=== PATIENT | female | born 1960 | race Caucasian/White ===

== ENCOUNTER 2016-12-01 16:21 | Emergency (ER) | payer OTHER ==
[~2016-12-01] VITALS: Ht 166.4 cm; Wt 107.5 kg
[~2016-12-01 16:21] MED LIST: ANTIVERT 25MG #1 PAC PO; ATORVASTATIN CA10 MG PO; AUGMENTIN 875-1 EACH PO; BACTRIM DS TAB1 EACH PO; BUPROPION HCL150 M2 PO; CIPRO 500MG TA500 MG PO; CORICIDIN HBP355 ML PO; CYCLOBENZAPRINE10 M1 PO; DICYCLOMINE HCL20 M1 PO; DIFLUCAN150 MG PO; DILAUDID2 MG PO; DUAVEE PO; FIORICET 50-301 EACH PO; GABAPENTIN100 M2 PO; HYDROCODON-ACE1 EAC2 PO; KEFLEX500 MG PO; KETOROLAC TROME10 M1 PO; LABETALOL HCL200 MG PO; LABETALOL HYDR200 MG PO; LEVSIN-SL0.125 MG SL; LOMOTIL 2.5-0.1 EACH PO; LOSARTAN POTAS100 MG PO; LOSARTAN POTASS50 MG PO; MECLIZINE HCL25 MG PO; NAPROXEN500 MG PO; OXYCODONE HCL5 M1 PO; PERCOCET 325 MG1 TA2 PO; PRAVASTATIN SOD10 M1 PO; ROBAXIN-750750 M1 PO; ROBAXIN-750750 MG PO; SERTRALINE HYD100 MG PO; TRANSDERM-SCOP1 EACH TOP; VIBRAMYCIN 100100 MG PO; VICODIN5-300 PO; VITAMIN D50000 IU PO; ZOFRAN4 M2 PO; ZOFRAN4 MG PO; [UNRECOGNIZED DRUG - OTHER] PO
--- NOTE | 2016-12-01 16:57 | ED GI/GU/ABDOMINAL COMPLAINT ---
See Addendum History of Present Illness General Chief Complaint: General Adult Stated Complaint: PT BLOOD IN URINE,BACK PAiN Source: patient Exam Limitations: no limitations Vital Signs & Intake/Output Vital Signs & Intake/Output Vital Signs Date Time Temp Pulse Resp B/P Pulse O2 O2 Flow FiO2 Ox Delivery Rate 12/01 1946 97.8 76 16 138/84 96 Room Air 12/01 1759 97.2 12/01 1737 71 20 142/95 95 Room Air 12/01 1628 97.2 76 20 133/88 97 Room Air ED Intake and Output 12/02 0000 12/01 1200 Intake Total 0 Output Total Balance 0 Intake, Oral 0 Patient 237 lb Weight Allergies Coded Allergies: NSAIDS (Non-Steroidal Anti-Inflamma (CANT HAVE DUE TO HX OF GASTRIC BYPASS 12/01) aspirin (CANT HAVE DUE TO HX GASTRIC BYPASS 12/01/16) Reconcile Medications Amoxicillin/Potassium Clav (Augmentin 875-125 Tablet) 1 EACH TABLET 1 TAB PO BID colitis Butalb/Acetaminophen/Caffeine (Fioricet 50-300-40 MG Capsule) 50 MG-300 MG-40 MG CAPSULE 1 TAB PO TID PRN MIGRAIN Cyclobenzaprine HCl 10 MG TABLET 1 TAB PO TID PRN MUSCLE SPASMS (Reported) Dicyclomine HCl 20 MG TABLET 1 TAB PO TID CRAMPS (Reported) Diphenoxylate HCl/Atropine (Lomotil 2.5-0.025 MG Tablet) 1 EACH TABLET 1 TAB PO 4 TIMES/DAY PRN diarrhea Gabapentin 100 MG CAPSULE 1 CAP PO TID FIBROMYALGIA (Reported) Hydrocodone/Acetaminophen (Hydrocodon-Acetaminophen 5-325) 5 MG-325 MG TABLET 1-2 TAB PO Q4-6 PRN PRN PAIN Hyoscyamine Sulfate (Levsin-Sl) 0.125 MG TAB.SUBL 1-2 TAB SL Q4P PRN abd cramps Ketorolac Tromethamine 10 MG TABLET 1 TAB PO TID PRN MIGRAINE LABETALOL HCL (Labetalol Hydrochloride) 200 MG TAB 1 TAB PO BID HEART ( Reported) Losartan Potassium 100 MG TAB 1 TAB PO DAILY HEART (Reported) Meclizine HCl 25 MG TABLET 1 TAB PO TIDPRN PRN VERTIGO Methocarbamol (Robaxin-750) 750 MG TABLET 1 TAB PO TID PRN spasm Ondansetron HCl (Zofran) 4 MG TABLET 1 TAB PO Q6-8P PRN NAUSEA Ondansetron HCl (Zofran) 4 MG TABLET 1 TAB PO Q6-8P PRN NAUSEA Pravastatin Sodium 10 MG TAB 1 TAB PO D CHOL (Reported) Scopolamine Hydrobromide (Transderm-Scop) 1.5MG/3DAY PATCH.TD.3 1 PAT TOP Q3D PRN VERTIGO apply to the hairless area behind 1 ear at least 4 hours before effect is required; reapply every 3 days as needed SERTRALINE HCL (Sertraline Hydrochloride) 100 MG TAB 1 TAB PO DAILY MENTAL HEALTH (Reported) Triage Note: TRIAGE: PT TO ER C/C PAIN FROM MID BACK TO RT ABD. ONSET THIS MORNING. CONSTANT SINCE ONSET. ALSO REPORTS NOTED BLOOD IN TOILET AFTER URINATING. STATES "I THINK THEY TOLD ME I HAD A SMALL KIDNEY STONE". -N/V. STATES "I FEEL VERY WEAK AND MY BALANCE HAS BEEN OFF TOO." Triage Nurses Notes Reviewed? yes ? N Is pt currently ? No Onset: Abrupt Duration: constant Timing: recent history Quality/Severity: sharpness, severe, stabbing Location: right flank Radiation: no radiation Activities at Onset: none HPI: Gallbladder Patient is a 56-year-old female who presents to emergency room with a acute onset of gross hematuria noted this morning while urinating patient had concomitant associated symptoms immediately of persistent right-sided flank pain with symptoms feels very similar to previous kidney stones. Patient has had some mild nausea however patient is able tolerate by mouth all day long. Last bowel movement was prior to arrival no blood no melena noted. Denies any fever chills chest pain cough shortness of breath. (HAIR DOWNING) Past History Travel History Traveled to [place] past 21 day No Medical History Any Pertinent Medical History? 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 No (HAIR DOWNING) Review of Systems Review of Systems Constitutional: Reports: no symptoms. EENTM: Reports: no symptoms. Respiratory: Reports: no symptoms. Cardiovascular: Reports: no symptoms. GI: Reports: see HPI, abdominal pain. Genitourinary: Reports: see HPI. Musculoskeletal: Reports: no symptoms. Skin: Reports: no symptoms. Neurological/Psychological: Reports: no symptoms. Hematologic/Endocrine: Reports: no symptoms. Immunologic/Allergic: Reports: no symptoms. All Other Systems: Reviewed and Negative (HAIR DOWNING) Physical Exam Physical Exam General Appearance: no apparent distress, alert, comfortable Eyes: Bilateral: normal appearance. Ears, Nose, Throat, Mouth: hearing grossly normal Neck: normal inspection Respiratory: normal breath sounds, chest non-tender, no respiratory distress Cardiovascular: regular rate/rhythm Gastrointestinal: normal bowel sounds, soft, RIGHT FLANK POINT TENDERNESS NOTED, NO REBOUND TENDERNESS NO PERITONEAL SIGNS NO LEFT LOWER QUADRANT PAIN Back: normal inspection Extremities: normal range of motion Neurologic/Psych: no motor/sensory deficits Skin: intact, normal color, warm/dry Core Measures ACS in differential dx? No Severe Sepsis Present: No Septic Shock Present: No (HAIR DOWNING) Progress Differential Diagnosis: AAA, AMI, biliary colic, bowel obstruction, colon cancer , diverticulitis, endometritis, esophageal varices, gastritis, hepatitis, hernia , hemorrhoids, ischemic bowel, inflamm bowel dis, kidney stone, [place] tear, ovarian cyst, ovarian torsion, pancreatitis, PID/cervicitis, peptic ulcer, PUD/GERD, perforated viscous, SBO, UTI/pyelo Plan of Care: Orders Procedure Date/time Status COMPREHENSIVE METABOLIC PANEL 12/01 1723 Complete CBC WITHOUT DIFFERENTIAL 12/01 1723 Complete URINALYSIS 12/01 1655 Complete Laboratory Tests 12/01/16 1734: Anion Gap 13, Estimated GFR > 60, BUN/Creatinine Ratio 13.8, Glucose 85, Calcium 9.3, Total Bilirubin 0.5, AST 71 H, ALT 73 H, Alkaline Phosphatase 103, Total Protein 7.2, Albumin 4.6, Globulin 2.6, Albumin/Globulin Ratio 1.8 12/01/16 1731: CBC w Diff NO MAN DIFF REQ, RBC 4.34, MCV 80.2 L, MCH 26.5 L, RDW 20.2 H, MPV 7.9, Gran % 61.4, Lymphocytes % 27.7, Monocytes % 6.3, Eosinophils % 2.3, Basophils % 2.3 H, Absolute Granulocytes 4.6, Absolute Lymphocytes 2.1, Absolute Monocytes 0.5, Absolute Eosinophils 0.2, Absolute Basophils 0.2, PUBS MCHC 33.1 12/01/16 1657: Urine Color YEL, Urine Clarity CLEAR, Urine pH 6.0, Ur Specific [place] 1.025, Urine Protein NEG, Urine Ketones TRACE H, Urine Nitrite NEG, Urine Bilirubin NEG, Urine Urobilinogen 0.2, Ur Leukocyte Esterase NEG, Ur Microscopic EXAM NOT REQUIRED, Urine Hemoglobin NEG, Urine Glucose NEG Patient currently is in no apparent distress patient will be evaluated for concerns of kidney stone. Discussed handout for (RACHEL GARY,HAIR) Initial ED EKG: none Hand-Off Endorsed To: RADHA MARCELO MD Endorsed Time: 1834 Pending: CT (HAIR DOWNING) Diagnostic Imaging: Viewed by Me: CT Scan. Discussed w/RAD: CT Scan. Hand-Off Endorsed To: AUTUMN LANE MD Endorsed Time: 1914 Pending: CT Comments: PATIENT: MARC MARSH PRESENT AGE: 56 PATIENT ACCOUNT NO: [id number] : 61 LOCATION: [facility] ORDERING PHYSICIAN: HAIR GARY SERVICE DATE: 12/01/16 EXAM TYPE: CAT - CT ABD & PELVIS W/O IV CONTRAS EXAMINATION: CT ABDOMEN AND PELVIS WITHOUT CONTRAST CLINICAL INFORMATION: Right flank pain. Hematuria COMPARISON: Ultrasound 11/04/[address] scan 05/07/2016 TECHNIQUE: Multidetector volumetric imaging was performed from the lung bases through the pubic symphysis. Sagittal and coronal reformatted images were obtained on the technologist workstation. FINDINGS: The lack of intravenous contrast limits evaluation of the solid visceral organs including the liver, spleen, pancreas, and kidneys. LUNG BASES: Mild cardiomegaly. Lung bases are clear. LIVER, GALLBLADDER, AND BILIARY TREE: Low-attenuation 4 cm lesion lateral segment left lobe of liver is seen hemangioma. No new focal liver lesion seen. Status post cholecystectomy. There is mild prominence of the common bile duct and central intrahepatic bile ducts, not uncommon following cholecystectomy. PANCREAS: Diffuse pancreatic atrophy. No peripancreatic fluid or inflammatory changes. No pancreatic mass. SPLEEN: Mild splenomegaly, 13.6 cm in diameter ADRENAL GLANDS: Normal; no adrenal mass. KIDNEYS AND URETERS: Limited non-contrast evaluation is normal. No hydronephrosis, hydroureter, or calculi seen. No perinephric stranding. GASTROINTESTINAL TRACT: Postoperative changes status post liver is likely a Ross-en-Y gastric bypass. Small bowel is nondilated. No evidence of small bowel obstruction. There is a very tortuous, gas distended sigmoid colon. No colonic wall thickening to suggest colitis or diverticulitis. Surgical sutures suggest prior appendectomy. No evidence of colitis or diverticulitis. ABDOMINAL WALL: Small fat-containing umbilical hernia. LYMPH NODES: No pathologically enlarged lymph nodes in the abdomen or pelvis. VASCULAR: Normal caliber abdominal aorta. BLADDER: Unremarkable. PELVIC VISCERA: Normal CT appearance of the uterus. No adnexal mass. OSSEOUS STRUCTURES: No acute or suspicious osseous abnormalities. IMPRESSION: No CT findings to explain the patient's right flank pain and hematuria. No radiopaque urolithiasis. No right colitis or diverticulitis. Status post cholecystectomy. DICTATED BY: NATASHA TELLEZ MD DATE/TIME DICTATED:12/01/161920 HYDROGEN TREATER:JOSELIN DATE/TIME TRANSCRIBED:12/01/161920 CONFIDENTIAL, DO NOT COPY WITHOUT APPROPRIATE AUTHORIZATION. <Electronically signed in Other Vendor System> SIGNED BY: NATASHA TELLEZ MD 1937 (DAVIAN TAYLOR,RADHA) Departure Departure Disposition: HOME OR SELF CARE Condition: Stable Clinical Impression Primary Impression: Renal colic on right side Referrals: NISA WEISS (PCP/Family) Departure Forms: Customer Survey General Discharge Information (HAIR DOWNING) PA/SALES FLOOR ASSOCIATE Co-Sign Statement Statement: ED Attending supervision documentation- X I saw and evaluated the patient. I have also reviewed all the pertinent lab results and diagnostic results. I agree with the findings and the plan of care as documented in the PA's/SALES FLOOR ASSOCIATE's documentation. [] I have reviewed the ED Record and agree with the PA's/SALES FLOOR ASSOCIATE's documentation. [] Additions or exceptions (if any) to the PAs/SALES FLOOR ASSOCIATE's note and plan are summarized below: [] (ARIANA TAYLOR,AUTUMN)
[2016-12-01 17:42] LABS: ABSOLUTE BASOPHIL COUNT 0.2 /CUMM (0.0-0.2); ABSOLUTE EOSINOPHIL COUNT 0.2 /CUMM (0.0-0.7); ABSOLUTE GRANULOCYTE CT 4.6 /CUMM (1.4-6.5); ABSOLUTE LYMPH COUNT 2.1 /CUMM (1.2-3.4); ABSOLUTE MONOCYTE COUNT 0.5 /CUMM (0.10-0.60); BASOPHIL % 2.3 % (0.0-2.0); EOSINOPHIL % 2.3 % (0-5); GRANULOCYTE % 61.4 % (42.2-75.2); HEMATOCRIT 34.8 % (37-47); MEAN CORPUSCULAR HGB 26.5 PG (27.0-31.0); MEAN CORPUSCULAR HGB CONC 33.1 G/DL (33.0-37.0); MEAN CORPUSCULAR VOLUME 80.2 FL (81.0-99.0); MEAN PLATELET VOLUME 7.9 FL (7.4-10.4); PLATELET COUNT 228 /CUMM (130-400); RBC DISTRIBUTION WIDTH 20.2 % (11.5-14.5); RED BLOOD CELL CT 4.34 /CUMM (4.20-5.40); WHITE BLOOD CELL COUNT 7.6 /CUMM (4.8-10.8)
--- NOTE | 2016-12-01 19:38 | CT SCAN REPORT ---
EXAMINATION: CT ABDOMEN AND PELVIS WITHOUT CONTRAST CLINICAL INFORMATION: Right flank pain. Hematuria COMPARISON: Ultrasound 11/04/[address] scan 05/07/2016 TECHNIQUE: Multidetector volumetric imaging was performed from the lung bases through the pubic symphysis. Sagittal and coronal reformatted images were obtained on the technologist workstation. FINDINGS: The lack of intravenous contrast limits evaluation of the solid visceral organs including the liver, spleen, pancreas, and kidneys. LUNG BASES: Mild cardiomegaly. Lung bases are clear. LIVER, GALLBLADDER, AND BILIARY TREE: Low-attenuation 4 cm lesion lateral segment left lobe of liver is seen hemangioma. No new focal liver lesion seen. Status post cholecystectomy. There is mild prominence of the common bile duct and central intrahepatic bile ducts, not uncommon following cholecystectomy. PANCREAS: Diffuse pancreatic atrophy. No peripancreatic fluid or inflammatory changes. No pancreatic mass. SPLEEN: Mild splenomegaly, 13.6 cm in diameter ADRENAL GLANDS: Normal; no adrenal mass. KIDNEYS AND URETERS: Limited non-contrast evaluation is normal. No hydronephrosis, hydroureter, or calculi seen. No perinephric stranding. GASTROINTESTINAL TRACT: Postoperative changes status post liver is likely a Ross-en-Y gastric bypass. Small bowel is nondilated. No evidence of small bowel obstruction. There is a very tortuous, gas distended sigmoid colon. No colonic wall thickening to suggest colitis or diverticulitis. Surgical sutures suggest prior appendectomy. No evidence of colitis or diverticulitis. ABDOMINAL WALL: Small fat-containing umbilical hernia. LYMPH NODES: No pathologically enlarged lymph nodes in the abdomen or pelvis. VASCULAR: Normal caliber abdominal aorta. BLADDER: Unremarkable. PELVIC VISCERA: Normal CT appearance of the uterus. No adnexal mass. OSSEOUS STRUCTURES: No acute or suspicious osseous abnormalities. IMPRESSION: No CT findings to explain the patient's right flank pain and hematuria. No radiopaque urolithiasis. No right colitis or diverticulitis. Status post cholecystectomy.
[2016-12-01 19:47] VITALS: BP 138/84
== END 2016-12-01 20:17 ==
LOC: ERH 16:21
PROVIDERS: Physician Assistant
DX: N23 Unspecified renal colic (principal)
CPT/HCPCS: 74176; 81003; J3101

== ENCOUNTER 2017-04-08 11:28 | Emergency (ER) | payer OTHER ==
[~2017-04-08] VITALS: Ht 165.1 cm; Wt 96.2 kg
[2017-04-08 11:36] VITALS: BP 104/66
--- NOTE | 2017-04-08 12:48 | ED UPPER/LOWER EXTREMITY COMPL ---
History of Present Illness General Chief Complaint: Lower Extremity Problems Stated Complaint: LFT KNEE REPLACEMENT March/PAIN Source: patient, old records Exam Limitations: no limitations Vital Signs & Intake/Output Vital Signs & Intake/Output Vital Signs Date Time Temp Pulse Resp B/P B/P Pulse O2 O2 Flow FiO2 Mean Ox Delivery Rate 04/08 1248 98 Room Air 04/08 1136 96.0 76 18 104/66 100 Room Air Allergies Coded Allergies: NSAIDS (Non-Steroidal Anti-Inflamma (CANT HAVE DUE TO HX OF GASTRIC BYPASS 12/01) aspirin (CANT HAVE DUE TO HX GASTRIC BYPASS 12/01/16) Reconcile Medications Amoxicillin/Potassium Clav (Augmentin 875-125 Tablet) 1 EACH TABLET 1 TAB PO BID colitis Butalb/Acetaminophen/Caffeine (Fioricet 50-300-40 MG Capsule) 50 MG-300 MG-40 MG CAPSULE 1 TAB PO TID PRN MIGRAIN Cyclobenzaprine HCl 10 MG TABLET 1 TAB PO TID PRN MUSCLE SPASMS (Reported) Dicyclomine HCl 20 MG TABLET 1 TAB PO TID CRAMPS (Reported) Diphenoxylate HCl/Atropine (Lomotil 2.5-0.025 MG Tablet) 1 EACH TABLET 1 TAB PO 4 TIMES/DAY PRN diarrhea Gabapentin 100 MG CAPSULE 1 CAP PO TID FIBROMYALGIA (Reported) Hydrocodone/Acetaminophen ([place] 5-325 Tablet) 5 MG-325 MG TABLET 1 TAB PO Q4- 6 PRN PRN pain Hyoscyamine Sulfate (Levsin-Sl) 0.125 MG TAB.SUBL 1-2 TAB SL Q4P PRN abd cramps Ketorolac Tromethamine 10 MG TABLET 1 TAB PO TID PRN MIGRAINE LABETALOL HCL (Labetalol Hydrochloride) 200 MG TAB 1 TAB PO BID HEART ( Reported) Losartan Potassium 100 MG TAB 1 TAB PO DAILY HEART (Reported) Meclizine HCl 25 MG TABLET 1 TAB PO TIDPRN PRN VERTIGO Methocarbamol (Robaxin-750) 750 MG TABLET 1 TAB PO TID PRN spasm Ondansetron (Zofran Odt) 4 MG TAB.RAPDIS 1 TAB SL TID PRN nausea Ondansetron HCl (Zofran) 4 MG TABLET 1 TAB PO Q6-8P PRN NAUSEA Ondansetron HCl (Zofran) 4 MG TABLET 1 TAB PO Q6-8P PRN NAUSEA Pravastatin Sodium 10 MG TAB 1 TAB PO D CHOL (Reported) Scopolamine Hydrobromide (Transderm-Scop) 1.5MG/3DAY PATCH.TD.3 1 PAT TOP Q3D PRN VERTIGO apply to the hairless area behind 1 ear at least 4 hours before effect is required; reapply every 3 days as needed SERTRALINE HCL (Sertraline Hydrochloride) 100 MG TAB 1 TAB PO DAILY MENTAL HEALTH (Reported) Triage Note: PT TO ED FOR KNEE PAIN, REPORTING SHE HAD A KNEE REPLACEMENT AT [facility], [facility] ON MONDAY AND IS NOW HAVING PAIN. PT STATING SHE CALLD HER DOCTOR "BUT NO ONE PICKED UP AND [facility] IS TOO [facility]" Triage Nurses Notes Reviewed? yes Onset: Gradual Duration: week(s): (1), constant Timing: recent history Severity: moderate Severity Numbers: 5 Pain/Injury Location: Left: Knee. No Modifying Factors: none Associated Symptoms: none HPI: 56-year-old female presents to ER for evaluation complaining of one-week history of progressive worsening left anterior knee pain. She is status post left knee surgery at [facility] in march. She saw her orthopedist last week prescribed her Percocet however states the pain persist and she ran out of her medication yesterday. She denies any redness or warmth to her leg no swelling to her leg no discharge from the wound no fever no chills. There are no modifying factors or associated symptoms otherwise. (HAIR LEE) Past History Travel History Traveled to [place] past 21 day No Medical History Any Pertinent Medical History? 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 No (HAIR LEE) Review of Systems Review of Systems Constitutional: Reports: see HPI. All Other Systems: Reviewed and Negative Comments Review of systems: See HPI, All other systems negative. Constitutional, no chills no fever, no malaise HEENT: No visual changes no sore throat no congestion, Cardiovascular: No chest pain , no palpitation Skin: no rashes, no change in skin Respiratory: No dyspnea no cough no sputum GI: No nausea no vomiting, no diarrhea, Muscle skeletal: No joint pain, no joint swelling, no back pain, no neck pain, Neurologic: No numbness no headache Psych: No stress Heme/endocrine: No bruising Immunology: No lymphadenopathy (HAIR LEE) Physical Exam Physical Exam General Appearance: well developed/nourished, no apparent distress, alert Comments: Well-developed well-nourished patient in no apparent distress. HEENT: Atraumatic, extraocular motion intact Neck: Supple, FROM Back: FROM Cardiovascular: Regular rate and rhythms no murmurs rubs Respiratory: No respiratory distress. Patient speaking in full complete sentences. Breath sounds clear to auscultation bilaterally: NO W/R/R Upper Extremities: full range of motio Hip/Pelvis: Atraumatic/Stable. FROM. No pain with pelvic compression Knee: Surgical incision is clean dry and intact there is no overlying erythema or induration or fluctuance stable. FROM. No joint swelling, no effusion. No laxity. Negative nicanor/anterior drawer test. No pain with ROM Leg: Atraumatic. Nontender. No calf swelling or tenderness No edema, 5 out of 5 strength in the lower extremity, normal dorsiflexion of great toe bilaterally, gross sensation is intact, Ankle/Foot: Atraumatic/stable. Skin intact. FROM. No swelling, no effusion. No laxity on exam Pulses: Normal/equal DP/PT pulses bilaterally. Brisk cap refill Neuro: awake, alert, and oriented to person, place and time. There were no obvious focal neurologic abnormalities. Skin: Warm & dry;No appreciable rash on exposed skin Psych: Mood affect normal, normal memory normal judgment. (HAIR LEE) Progress Differential Diagnosis: cellulitis, compartment syndrome, contusion, dislocation , DVT, fracture, sprain, tendon injury Plan of Care: I discussed with the patient at length all of their results. I had an extensive conversation regarding need for close follow up with their primary care physician this week as well as return precautions. I answered all of their questions, they feel comfortable with the plan and follow-up care. I discussed with the patient/family the medications that they will receive. I gave them signs and symptoms that could indicate an adverse reaction. I have advised them to limit their activities until they can see how they respond to the medication. (HAIR LEE) Departure Departure Time of Disposition: 1254 Disposition: HOME OR SELF CARE Condition: Stable Clinical Impression Primary Impression: Knee pain Referrals: NISA WEISS (PCP/Family) Additional Instructions: follow up with your orthopedist on monday. rest, keep leg elevated, interchange ice and heat. vicodin as directed. this is a narcotic and highly addictive no driving or drinking alcohol while taking. zofran for nausea. [facility]arture Forms: Customer Survey General Discharge Information Prescriptions: Current Visit Scripts Hydrocodone/Acetaminophen ([place] 5-325 Tablet) 1 TAB PO Q4-6 PRN PRN pain #10 TAB Ondansetron (Zofran Odt) 1 TAB SL TID PRN nausea #10 TAB (HAIR LEE) PA/CHANNEL SUPERVISOR Co-Sign Statement Statement: ED Attending supervision documentation- I saw and evaluated the patient. I have also reviewed all the pertinent lab results and diagnostic results. I agree with the findings and the plan of care as documented in the PA's/CHANNEL SUPERVISOR's documentation. x I have reviewed the ED Record and agree with the PA's/CHANNEL SUPERVISOR's documentation. [] Additions or exceptions (if any) to the PAs/CHANNEL SUPERVISOR's note and plan are summarized below: [] (ARIANA TAYLOR,AUTUMN)
[2017-04-08] MEDS ORDERED: NORCO 5-325 TA1 EACH PO (12:57)
[2017-04-08] MEDS ORDERED: ZOFRAN ODT4 M1 SL (12:57)
== END 2017-04-08 13:20 ==
LOC: ERH 11:28
DX: M25.562 Pain in left knee (principal)

== ENCOUNTER 2018-03-29 09:22 | Inpatient (IN) | payer OTHER ==
[~2018-03-29] VITALS: Ht 165.1 cm; Wt 97.5 kg
[~2018-03-29 09:22] MED LIST changes: +ASPIRIN EC325 M2 PO; +BENTYL10 M1 PO; +DIFLUCAN150 M1 PO; +FERROUS SULFAT325 M2 PO; -GABAPENTIN100 M2 PO; +HYDROCHLOROTH12.5 M2 PO; +K-TAB ER10 MEQ PO; +KEFLEX500 M1 PO; +LABETALOL HCL200 M1 PO; -LABETALOL HYDR200 MG PO; +LIALDA1.2 G1 PO; +LOSARTAN POTAS100 M1 PO; -LOSARTAN POTAS100 MG PO; +MELOXICAM7.5 M1 PO; +MOBIC15 M1 PO; +NEURONTIN400 M1 PO; +NORCO 5-325 TA1 EACH PO; +PERCOCET 5-3251 EACH PO; -PRAVASTATIN SOD10 M1 PO; +PRAVASTATIN SOD10 M2 PO; +PROTONIX40 M3 PO; -SERTRALINE HYD100 MG PO; +TRAMADOL HCL50 M1 PO; +ZOFRAN ODT4 M1 SL; +ZOLOFT100 M1 PO; +[UNRECOGNIZED DRUG - OTHER] TOP
--- NOTE | 2018-03-29 11:02 | ED GENERAL ADULT ---
History of Present Illness General Chief Complaint: General Adult Stated Complaint: SENT BY MD FOR ABNORMAL LABS Source: patient, old records Exam Limitations: no limitations Vital Signs & Intake/Output Vital Signs & Intake/Output Vital Signs Date Time Temp Pulse Resp B/P B/P Pulse O2 O2 Flow FiO2 Mean Ox Delivery Rate 03/29 1504 97.5 73 18 128/77 99 03/29 1249 Room Air 03/29 0937 97.5 88 18 105/74 96 Room Air Allergies Coded Allergies: NSAIDS (Non-Steroidal Anti-Inflamma (CANT HAVE DUE TO HX OF GASTRIC BYPASS 07/14) Reconcile Medications Aspirin (Ecotrin*) 325 MG TABLET.DR 1 TAB PO BID PROPHO (Reported) Dicyclomine HCl 20 MG TABLET 1 TAB PO TID GI (Reported) Dicyclomine Hydrochloride (Bentyl) 10 MG CAPSULE 1 CAP PO TID PRN PAIN Ferrous Sulfate 325 MG (65 MG IRON) TABLET.DR 1 TAB PO DAILY SUPPLEMENT ( Reported) Fluocinolone Acetonide ([place] Shampoo) 0.01 % SHAMPOO 1 JUAN ANTONIO TOP AD SCALP ( Reported) Gabapentin (Neurontin) 300 MG CAPSULE 1 CAP PO TID PAIN (Reported) Hydrochlorothiazide 12.5 MG TABLET 1 TAB PO DAILY HTN (Reported) Labetalol HCl 200 MG TABLET 1 TAB PO BID HEART (Reported) Losartan Potassium 100 MG TABLET 1 TAB PO DAILY HEART (Reported) Mesalamine (Lialda) 1.2 GRAM TABLET.DR 1 TAB PO BID GI (Reported) Oxycodone HCl 5 MG TABLET 1 TAB PO BIDP PRN PAIN (Reported) Pantoprazole Sodium (Protonix) 40 MG TABLET.DR 1 TAB PO BID GI (Reported) Potassium Chloride (K-Tab ER) 10 MEQ TABLET.ER 1 TAB PO DAILY HYPOK Pravastatin Sodium 10 MG TABLET 1 TAB PO DAILY CHOLESTEROL (Reported) Sertraline HCl (Zoloft) 100 MG TABLET 1 TAB PO DAILY MENTAL HEALTH (Reported) Triage Note: PT STATES THAT SHE HAS NOT BEEN FEELING WELL LATELY, BLACKED OUT ON MONDAY AND MONDAY STARTED TO FEEL WELL, WAS SEEN AT [facility] YESTERDAY AND HAD LABS, STATES THAT THEY CALLED HER THIS AM AND TOLF HER TO COME TO ER DUE TO ABNORMAL LABS. BUN 36/ CREATNINE 2.88/WBC 19.0/ LYMPHOCYTES [id number] PT DENIES URINARY SYMPTOMS/ABD PAIN/CP/SOB STATES THAT SHE FEELS A LITTLE BETTER TODAY Triage Nurses Notes Reviewed? yes HPI: Patient states that she has been feeling weak and fatigued over the past few days. Patient states that her mom came home 2 days ago and she was "out of it. ". Patient went to her primary care physician yesterday and she had blood work drawn. She received a phone call today saying that she was in renal failure and had to go to the emergency room. Patient denies any chest pain. There is no shortness of breath. There is no weight gain. Patient denies any headache. Past History Travel History Traveled to [place] past 21 day No Medical History Any Pertinent Medical History? 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 No Review of Systems Review of Systems Constitutional: Reports: see HPI, weakness. EENTM: Reports: no symptoms. Respiratory: Reports: no symptoms. Cardiovascular: Reports: no symptoms. GI: Reports: no symptoms. Genitourinary: Reports: no symptoms. Musculoskeletal: Reports: no symptoms. Skin: Reports: no symptoms. Neurological/Psychological: Reports: no symptoms. Hematologic/Endocrine: Reports: no symptoms. Immunologic/Allergic: Reports: no symptoms. All Other Systems: Reviewed and Negative Physical Exam Physical Exam General Appearance: well developed/nourished, alert, awake, mild distress Head: atraumatic, normal appearance Eyes: Bilateral: PERRL, EOMI. Ears, Nose, Throat: normal pharynx, normal ENT inspection, hearing grossly normal Neck: normal inspection, supple, full range of motion Respiratory: normal breath sounds, chest non-tender, no respiratory distress, lungs clear Cardiovascular: regular rate/rhythm, normal peripheral pulses Gastrointestinal: normal bowel sounds, soft, non-tender, no organomegaly Back: normal inspection, normal range of motion Extremities: normal inspection, normal capillary refill, normal range of motion, no edema Neurologic/Psych: no motor/sensory deficits, awake, alert, oriented x 3, normal mood/affect Skin: intact, normal color, warm/dry Core Measures ACS in differential dx? No CVA/TIA Diagnosis: No Sepsis Present: No Sepsis Focused Exam Completed? No Progress Differential Diagnoses I considered the following diagnoses in my evaluation of the patient: [Acute renal failure] Plan of Care: Orders Procedure Date/time Status Heart Healthy Diet 03/29 D Active Patient Data 03/29 1352 Active ED Holding Orders 03/29 1345 Active Admit to inpatient 03/29 1345 Active Vital Signs 03/29 1345 Active EKG 03/29 1345 Active Code Status 03/29 1345 Active Intake & Output 03/29 1154 Active URINALYSIS 03/29 1030 Complete COMPREHENSIVE METABOLIC PANEL 03/29 1030 Complete CBC WITHOUT DIFFERENTIAL 03/29 1030 Complete Laboratory Tests 03/29/18 1137: Anion Gap 15, Estimated GFR 14 L, BUN/Creatinine Ratio 12.1, Glucose 105 H, Calcium 9.4, Total Bilirubin 0.6, AST 26, ALT 45, Alkaline Phosphatase 122, Total Protein 6.8, Albumin 4.2, Globulin 2.6, Albumin/Globulin Ratio 1.6, CBC w Diff NO MAN DIFF REQ, RBC 4.40, MCV 86.9, MCH 29.3, MCHC 33.7, RDW 14.5, MPV 8.1 , Gran % 75.6 H, Lymphocytes % 16.1 L, Monocytes % 5.9, Eosinophils % 2.1, Basophils % 0.3, Absolute Granulocytes 11.6 H, Absolute Lymphocytes 2.5, Absolute Monocytes 0.9 H, Absolute Eosinophils 0.3, Absolute Basophils 0.1, Urinalysis LIGHT H, Urine Color YEL, Urine Clarity HAZY H, Urine pH 5.5, Ur Specific [place] >= 1.030, Urine Protein 30 H, Urine Ketones TRACE H, Urine Nitrite NEG, Urine Bilirubin NEG@ICTO, Urine Urobilinogen 0.2, Ur Leukocyte Esterase TRACE H, Ur Microscopic SEDIMENT EXAMINED, Urine WBC 1-3 H, Ur Epithelial Cells MANY H, Urine Bacteria FEW H, Hyaline Casts 1-3 H, Urine Hemoglobin NEG, Urine Glucose NEG Diagnostic Imaging: Viewed by Me: Ultrasound. Discussed w/RAD: Ultrasound. Initial ED EKG: NSR, nonspecific ST T wave chg Comments: Case was discussed with Dr. Romano. He recommends admission for further workup. Departure Departure Disposition: STILL A PATIENT Condition: Stable Clinical Impression Primary Impression: ARF (acute renal failure) Referrals: Zakiya Ayers APRN (PCP/Family) Departure Forms: Customer Survey General Discharge Information Admission Note Spoke With: Merle TAYLOR,Agueda Documentation of Exam: Documentation of any treatments & extenuating circumstances including Concerns Regarding Discharge (functional status, medication knowledge or non-compliance, living conditions, etc.) that warrant an admission rather than observation: [IV fluids, follow-up ultrasound, hold the losartan, renal consultation] Critical Care Note Critical Care Note Critical Care Time: non-applicable
[2018-03-29 11:57] LABS: ABSOLUTE BASOPHIL COUNT 0.1 /CUMM (0.0-0.2); ABSOLUTE EOSINOPHIL COUNT 0.3 /CUMM (0.0-0.7); ABSOLUTE GRANULOCYTE CT 11.6 /CUMM (1.4-6.5); ABSOLUTE LYMPH COUNT 2.5 /CUMM (1.2-3.4); ABSOLUTE MONOCYTE COUNT 0.9 /CUMM (0.10-0.60); BASOPHIL % 0.3 % (0.0-2.0); EOSINOPHIL % 2.1 % (0-5); GRANULOCYTE % 75.6 % (42.2-75.2); HEMATOCRIT 38.2 % (37-47); MEAN CORPUSCULAR HGB 29.3 PG (27.0-31.0); MEAN CORPUSCULAR HGB CONC 33.7 G/DL (33.0-37.0); MEAN CORPUSCULAR VOLUME 86.9 FL (81.0-99.0); MEAN PLATELET VOLUME 8.1 FL (7.4-10.4); PLATELET COUNT 357 /CUMM (130-400); RBC DISTRIBUTION WIDTH 14.5 % (11.5-14.5); WHITE BLOOD CELL COUNT 15.3 /CUMM (4.8-10.8)
--- NOTE | 2018-03-29 14:07 | History & Physical ---
Rosalba Poole 03/29/18 1406: General Information and HPI History of Present Illness: Ms. Levy is a 57-year-old female with a PMH of hypertension, hyperlipidemia, colitis, fibromyalgia, depression SIB [facility] for abnormal labs. Patient reports yesterday she was not feeling well and that she was having watery brown stools and lightheadedness for the last 4 days. As per her family members she was "comatose" and had slurred speech and she then went to the doctor to get checked. Her labs were drawn and she received a call from her provider that noted her creatinine was 2.88, white count 19,000 and lymphocytes 16,000 and was told to go to the ED. She notes in January her gabapentin was recently increased from 300 to 400 mg TID. Today she did not take her gabapentin and reports her symptoms spontaneously resolved. She has had intermittent right-sided flank pain without radiation. One month ago she was treated by Dr. Bill for colitis and was given antibiotics. She reports at that time she did not have any diarrhea. She also reports a few months ago she had a syncopal episode and was treated in [place], she was told that she was on too many antihypertensives and her labetalol was discontinued. At baseline she walks with a walker. She denies fever, chills, LOC, nausea, vomiting, SOB, CP or urinary symptoms. 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 Exam & Diagnostic Data Last 24 Hrs of Vital Signs/I&O Vital Signs Date Time Temp Pulse Resp B/P B/P Pulse O2 O2 Flow FiO2 Mean Ox Delivery Rate 03/29 1710 98.2 89 18 130/68 97 Room Air 03/29 1616 97.6 84 16 136/74 98 Room Air 03/29 1504 97.5 73 18 128/77 99 03/29 1249 Room Air 03/29 0937 97.5 88 18 105/74 96 Room Air Intake & Output 03/29 1600 03/29 0800 03/29 0000 Intake Total 1000 Output Total Balance 1000 Intake, IV 1000 Patient 215 lb Weight Physical Exam General Appearance Alert, Oriented X3, Cooperative, No Acute Distress, Obese HEENT Atraumatic, PERRLA, EOMI, Mucous Membr. moist/pink Neck Supple, No JVD, No thryomegaly Cardiovascular Regular Rate, Normal S1, Normal S2, 2/6 systolic murmur Extremities trace edema Last 24 Hrs of Labs/Tristen: Laboratory Tests 03/29/18 1137: Urinalysis LIGHT H, Urine Color YEL, Urine Clarity HAZY H, Urine pH 5.5, Ur Specific [place] >= 1.030, Urine Protein 30 H, Urine Ketones TRACE H, Urine Nitrite NEG, Urine Bilirubin NEG@ICTO, Urine Urobilinogen 0.2, Ur Leukocyte Esterase TRACE H, Ur Microscopic SEDIMENT EXAMINED, Urine WBC 1-3 H, Ur Epithelial Cells MANY H, Urine Bacteria FEW H, Hyaline Casts 1-3 H, Urine Hemoglobin NEG, Urine Glucose NEG 03/29/18 1137: Anion Gap 15, Estimated GFR 14 L, BUN/Creatinine Ratio 12.1, Glucose 105 H, Calcium 9.4, Phosphorus 4.3, Magnesium 2.3, Total Bilirubin 0.6, AST 26, ALT 45, Alkaline Phosphatase 122, Creatine Kinase 45, Total Protein 6.8, Albumin 4.2, Globulin 2.6, Albumin/Globulin Ratio 1.6, CBC w Diff NO MAN DIFF REQ, RBC 4.40, MCV 86.9, MCH 29.3, MCHC 33.7, RDW 14.5, MPV 8.1, Gran % 75.6 H, Lymphocytes % 16.1 L, Monocytes % 5.9, Eosinophils % 2.1, Basophils % 0.3, Absolute Granulocytes 11.6 H, Absolute Lymphocytes 2.5, Absolute Monocytes 0.9 H, Absolute Eosinophils 0.3, Absolute Basophils 0.1, Ur Random Creatinine Pending, Ur Random Sodium 7 L, Ur Random Potassium 17.3, Fraction Sodium Excret Pending Microbiology 03/29 1748 STOOL: Clostridium difficile Toxin A & B - CAN Cancelled: Cancelled via OE: Error 03/29 1719 STOOL: Cryptosporidium Antigen - COLB 03/29 1719 STOOL: Giardia Antigen (TRISTEN) - COLB 03/29 1719 STOOL: Stool Culture - COLB Diagnostic Data Other Results 03/29/18-1230 EXAM TYPE: US - US-RENAL/KIDNEY IMPRESSION: Normal sonographic appearance of the kidneys. Assessment/Plan Assessment: Ms. Levy is a 57-year-old female with a PMH of hypertension, hyperlipidemia, colitis, fibromyalgia, depression SIB [facility] for abnormal labs. Problem list: #KAY (Cr 3.4)- secondary to dehydration in the setting of antihypertensives versus due to gabapentin use #Leukocytosis - may be reactive Plan: Admit to general med for further evaluation and management Renal ultrasound Urine lytes NS IVF @ 150 cc/hr Watch off antibiotics Vitals every shift Continue home meds: Dicyclomine, mesalamine, oxycodone, Ativan, sertraline We will hold losartan and gabapentin Avoid nephrotoxic agents Stool for ova and parasites C. difficile toxin GI consult for diarrhea Nephro consult for a CAD Diet: Heart healthy DVT ppx: Heparin Code: Full As Ranked By This Provider Problem List: 1. ARF (acute renal failure) Core Measures/Misc (07/23) Sepsis (View protocol) If YES complete Sepsis Event Note If YES complete Sepsis Event Note Noah TAYLOR,[facility] 03/29/18 1520: Core Measures/Misc (07/23) Sepsis (View protocol) If YES complete Sepsis Event Note If YES complete Sepsis Event Note Attending MD Review Statement Attending Statement Attending MD Statement: examined this patient, discuss w/resident/PA/ENVIRONMENTAL PERMITTING SPECIALIST, agreed w/resident/PA/ENVIRONMENTAL PERMITTING SPECIALIST, reviewed EMR data (avail), discussed with nursing, discussed with case mgmt, reviewed images, amended to note Attending Assessment/Plan: 57-year-old female with past medical history significant for hypertension, hyperlipidemia, ulcerative colitis, fiber myalgia, depression who presented to the emergency room after she was told that she has abnormal blood work. Patient claims that since last 1 week she has been having watery diarrhea. Every time she urinates, she has a loose bowel movement. She has not eaten anything since last 4 days because she is afraid to eat due to diarrhea. She denies any abdominal pain. She also mentions that recently her gabapentin dose has been increased and she thinks that it's making her dizzy and foggy. She does admit to eating in a restaurant last week. She denies any abdominal pain or nausea or vomiting. She denies any bright red blood per rectum. She had a coloscopy done in January 2018 which showed that her ulcerative colitis is stable. She does take Lialda for ulcerative colitis. No hx of NSAID use. Vital Signs Date Time Temp Pulse Resp B/P B/P Pulse O2 O2 Flow FiO2 Mean Ox Delivery Rate 03/29 1504 97.5 73 18 128/77 99 03/29 1249 Room Air 03/29 0937 97.5 88 18 105/74 96 Room Air on exam; aox3, nad. heent; dry MM. cv; s1,s2, rrr resp; clear abd; soft, nt, bs+ ext; no edema Laboratory Tests 03/29 1137 Chemistry Sodium (137 - 145 mmol/L) 142 Potassium (3.5 - 5.1 mmol/L) 3.2 L Chloride (98 - 107 mmol/L) 104 Carbon Dioxide (22 - 30 mmol/L) 23 Anion Gap (5 - 16) 15 BUN (7 - 17 mg/dL) 41 H Creatinine (0.5 - 1.0 mg/dL) 3.4 H Estimated GFR (>60 ml/min) 14 L BUN/Creatinine Ratio (7 - 25 %) 12.1 Glucose (65 - 99 mg/dL) 105 H Calcium (8.4 - 10.2 mg/dL) 9.4 Total Bilirubin (0.2 - 1.3 mg/dL) 0.6 AST (14 - 36 U/L) 26 ALT (9 - 52 U/L) 45 Alkaline Phosphatase (<127 U/L) 122 Total Protein (6.3 - 8.2 g/dL) 6.8 Albumin (3.5 - 5.0 g/dL) 4.2 Globulin (1.9 - 4.2 gm/dL) 2.6 Albumin/Globulin Ratio (1.1 - 2.2 %) 1.6 Hematology CBC w Diff NO MAN DIFF REQ WBC (4.8 - 10.8 /CUMM) 15.3 H RBC (4.20 - 5.40 /CUMM) 4.40 Hgb (12.0 - 16.0 G/DL) 12.9 Hct (37 - 47 %) 38.2 MCV (81.0 - 99.0 FL) 86.9 MCH (27.0 - 31.0 PG) 29.3 MCHC (33.0 - 37.0 G/DL) 33.7 RDW (11.5 - 14.5 %) 14.5 Plt Count (130 - 400 /CUMM) 357 MPV (7.4 - 10.4 FL) 8.1 Gran % (42.2 - 75.2 %) 75.6 H Lymphocytes % (20.5 - 51.1 %) 16.1 L Monocytes % (1.7 - 9.3 %) 5.9 Eosinophils % (0 - 5 %) 2.1 Basophils % (0.0 - 2.0 %) 0.3 Absolute Granulocytes (1.4 - 6.5 /CUMM) 11.6 H Absolute Lymphocytes (1.2 - 3.4 /CUMM) 2.5 Absolute Monocytes (0.10 - 0.60 /CUMM) 0.9 H Absolute Eosinophils (0.0 - 0.7 /CUMM) 0.3 Absolute Basophils (0.0 - 0.2 /CUMM) 0.1 Urines Urinalysis LIGHT H Urine Color (YEL,AMB,STR) YEL Urine Clarity (CLEAR) HAZY H Urine pH (5.0 - 8.0) 5.5 Ur Specific [place] (1.001 - 1.035) >= 1.030 Urine Protein (NEG,<30 MG/DL) 30 H Urine Ketones (NEG) TRACE H Urine Nitrite (NEG) NEG Urine Bilirubin (NEG) NEG@ICTO Urine Urobilinogen (0.1 - 1.0 EU/dl) 0.2 Ur Leukocyte Esterase (NEG) TRACE H Ur Microscopic SEDIMENT EXAMINED Urine WBC (0 - 2 /HPF) 1-3 H Ur Epithelial Cells (NONE,FEW) MANY H Urine Bacteria (NEG/NONE) FEW H Hyaline Casts (0/LPF) 1-3 H Urine Hemoglobin (NEG) NEG Urine Glucose (N MG/DL) NEG Renal ultrasound does not show any hydronephrosis or obstruction. Her EKG shows sinus rhythm with no acute ST-T wave changes. A/P: 57-year-old female with past medical history significant for hypertension, hyperlipidemia, ulcerative colitis, fiber myalgia, depression admitted with acute renal failure likely secondary to prerenal etiology from dehydration. Renal ultrasound negative for any hydronephrosis or obstruction. Patient admitted to medicine. She is getting IV fluids. Please obtain urine studies to calculate FENA. Continue IV fluids and monitor creatinine. Please consult GI for diarrhea associated with ulcerative colitis. We'll check stool studies to rule out any C. difficile, stool culture. Will hold all nephrotoxin meds including ARB/Diuretics. Hold Gabapentin. Continue IVFs. DVT px; Hep sq. Full code. Dale TAYLOR,[place] 03/29/18 1703: General Information and HPI MD Statement: I have seen and personally examined MARC LEVY and documented this H&P. The patient is a 57 year old F who presented with a patient stated chief complaint of [KAY]. Source of Information: patient, family, old records Exam Limitations: no limitations Allergies/Medications Home Med list Dicyclomine HCl 20 MG TABLET 1 TAB PO TID GI (Reported) Ferrous Sulfate 325 MG (65 MG IRON) TABLET.DR 1 TAB PO DAILY SUPPLEMENT ( Reported) Gabapentin (Neurontin) 400 MG CAPSULE 1 CAP PO TID Peripheral neuropathy ( Reported) Losartan Potassium 100 MG TABLET 1 TAB PO DAILY HEART (Reported) Mesalamine (Lialda) 1.2 GRAM TABLET.DR 1 TAB PO BID GI (Reported) Oxycodone HCl 5 MG TABLET 1 TAB PO BIDP PRN PAIN (Reported) Pantoprazole Sodium (Protonix) 40 MG TABLET.DR 1 TAB PO BID GI (Reported) Pravastatin Sodium 10 MG TABLET 1 TAB PO DAILY CHOLESTEROL (Reported) Sertraline HCl (Zoloft) 100 MG TABLET 1 TAB PO DAILY MENTAL HEALTH (Reported) Core Measures/Misc (07/23) Acute Coronary Syndrome ACS Diagnosis: No Congestive Heart Failure Congestive Heart Failure Diagnosis No Cerebrovascular Accident CVA/TIA Diagnosis: No VTE (View Protocol) VTE Risk Factors Age>40 No Mechanical VTE Prophylaxis d/t N/A MechProphylax Ordered No VTE Pharm Prophylaxis d/t NA PharmProphylax ordered Comment: KAY so on heparin Sepsis (View protocol) Sepsis Present: No If YES complete Sepsis Event Note If YES complete Sepsis Event Note Resident Review Statement Resident Statement: examined this patient, discussed with tax services intern, agreed with tax services intern, discussed with family Other Findings: Patient is a 57-year-old female past medical history of hypertension, hyperlipidemia, ulcerative colitis, fibromyalgia, depression, history of gastric bypass surgery,Mild multilevel lumbar spondylosis sent by her PCP for further evaluation of high creatinine. According to the patient she was not feeling well since last 5 days. She had episodes of diarrhea around 3-4 times in a day. Stool was watery nature but denies for any blood in the stools. She did eat outside, but denies for any seafood, sick contacts, fever, nausea, vomiting. Since last 2 days she was very weak and dizzy and yesterday she was kind of unresponsive. Her family including her sister came into the home and they advised her to go to the [facility]. She went there and her blood workup was checked. She was called by her primary care in the morning that her creatinine number is 2.88 and she needed to go to the emergency department. She denies for any headache, nausea, vomiting, fever, shortness of breath, chest pain, abdominal pain, urinary symptoms, use of NSAIDs. Of note she also said that recently her gabapentin dose has been increased from 300 mg to 400 mg 3 times a day a month ago but that may be responsible for her height kidney number. She was also saying that she had an episode of diarrhea about a month ago and was prescribed antibiotic by Dr. Bill and later Imodium. ED course - Vital signs -temperature 97.5, pulse 88, respiratory rate 18, blood pressure 105 /74, SPO2 96% on room air. On physical exam -oral mucosa dry otherwise normal. Blood workup showed -WBC 15.3, hemoglobin 12.9, hematocrit 38.2, platelet count 357, granulocyte 75.6, lymphocytes 16.1, sodium 142, potassium 3.2, chloride 104 , carbon dioxide 23, anion gap 15, BUN 41, creatinine 3.4, GFR 14, glucose 105, calcium 9.4, total bilirubin 0.6, AST 26, ALT 45, alkaline phosphatase 108, total protein 6.8, albumin 4.2, globulin 2.6, UA -type color, hazy, protein 30, trace ketones, WBC 1-3, bacteria few. Ultrasound of the kidney -normal sonographic appearance of the kidney Assessment and plan - Acute kidney injury secondary to dehydration, diarrhea probably acute tubular necrosis - * We will start patient on IV fluid normal saline 150 cc/h * Strict intake output charting * Avoid nephrotoxic medication * He will follow nephrology recommendation * We will follow creatinine Leukocytosis -reactionary; infection is not ruled out - * Patient does not have any fever, tachycardia, she recently had diarrhea which has been improved. * We will check a stool for ova and parasite, will do a stool culture. * We stool for C diff, was negative in morning. * We will follow GI Chronic medical condition -hypertension, hyperlipidemia, colitis, fibromyalgia, depression - * We will hold losartan and continue all other medication DVT prophylaxis -heparin/ALPS CODE STATUS-full code Diet -heart healthy diet
--- NOTE | 2018-03-29 14:21 | ULTRASOUND REPORT ---
EXAMINATION: US RETROPERITONEAL COMPLETE (RENAL) CLINICAL INFORMATION: Acute renal failure. COMPARISON: Selected images of the abdomen and pelvic CT scan of 05/20/2017. TECHNIQUE: Real-time imaging of the kidneys and bladder. FINDINGS: RIGHT KIDNEY: 10.9 x 4.7 x 4.5 cm (SAG x AP x TRV). The kidney is normal in size, contour, and echogenicity. Renal cortical thickness is normal. No calculi or focal parenchymal lesions. No hydronephrosis. LEFT KIDNEY: 10.2 x 5.1 x 4.5 cm (SAG x AP x TRV). The kidney is normal in size, contour, and echogenicity. Renal cortical thickness is normal. No calculi or focal parenchymal lesions. No hydronephrosis. BLADDER: Significantly underdistended and therefore not optimally evaluated. Bilateral ureteral jets are not demonstrated. Prevoid bladder volume is 29 mL. Postvoid bladder volume is 12 mL. IMPRESSION: Normal sonographic appearance of the kidneys.
--- NOTE | 2018-03-29 16:40 | Cons- Nephrology ---
General Information and HPI Consulting Request Date of Consult: 03/29/18 Requested By: Noah TAYLOR,Myrtle Reason for Consult: KAY Source of Information: patient, old records Exam Limitations: no limitations History of Present Illness: I have been asked to see this 57-year-old woman because of a markedly elevated serum creatinine level. She has a background that includes colitis (colonoscopy Dr. Bill 02/02/18) and has recently been having watery stools several times a day. Her most recent baseline serum creatinine was 0.7 in July 2017. She comes to the emergency department now because of the finding of a markedly elevated serum creatinine which on arrival at the ED was 3.4, prompting this consultation request. As already noted, she has had diarrhea but no vomiting and was not exposed to any NSAIDs or parenteral contrast. She was however taking hydrochlorothiazide and losartan (100 mg daily). Her blood pressure here has been within normal limits with systolics in the 120s but she states that she has felt some lightheadedness from time to time over the past 1-2 days. Past medical history is positive for hypertension, hyperlipidemia, colitis, fibromyalgia, depression, left knee replacement, appendectomy, cholecystectomy, gastric bypass, carpal tunnel surgery. Medications: See below Allergies: NSAIDs Family history: Negative for any known kidney disease in parents or other family members. Social history: Currently lives with her mother although she is looking for her own place. . Denies cigarette smoking, alcohol abuse or drug abuse. Allergies/Medications Allergies: Coded Allergies: NSAIDS (Non-Steroidal Anti-Inflamma (CANT HAVE DUE TO HX OF GASTRIC BYPASS 07/14) Home Med List: Aspirin (Ecotrin*) 325 MG TABLET.DR 1 TAB PO BID PROPHO (Reported) Dicyclomine HCl 20 MG TABLET 1 TAB PO TID GI (Reported) Dicyclomine Hydrochloride (Bentyl) 10 MG CAPSULE 1 CAP PO TID PRN PAIN Ferrous Sulfate 325 MG (65 MG IRON) TABLET.DR 1 TAB PO DAILY SUPPLEMENT ( Reported) Fluocinolone Acetonide ([place] Shampoo) 0.01 % SHAMPOO 1 JUAN ANTONIO TOP AD SCALP ( Reported) Gabapentin (Neurontin) 300 MG CAPSULE 1 CAP PO TID PAIN (Reported) Hydrochlorothiazide 12.5 MG TABLET 1 TAB PO DAILY HTN (Reported) Labetalol HCl 200 MG TABLET 1 TAB PO BID HEART (Reported) Losartan Potassium 100 MG TABLET 1 TAB PO DAILY HEART (Reported) Mesalamine (Lialda) 1.2 GRAM TABLET.DR 1 TAB PO BID GI (Reported) Oxycodone HCl 5 MG TABLET 1 TAB PO BIDP PRN PAIN (Reported) Pantoprazole Sodium (Protonix) 40 MG TABLET.DR 1 TAB PO BID GI (Reported) Potassium Chloride (K-Tab ER) 10 MEQ TABLET.ER 1 TAB PO DAILY HYPOK Pravastatin Sodium 10 MG TABLET 1 TAB PO DAILY CHOLESTEROL (Reported) Sertraline HCl (Zoloft) 100 MG TABLET 1 TAB PO DAILY MENTAL HEALTH (Reported) Review of Systems Review of Systems: weight Gen.: Has not been eating, lost about 4-5 pounds over the past few days Skin: No rash or jaundice HEENT: No visual or hearing disturbances, no discharge Cardiopulmonary: No shortness of breath, cough, chest pain, orthopnea GI: No nausea, vomiting, abdominal pain; + diarrhea -see HPI : No dysuria, hematuria or other symptoms referable to the urinary tract Musculoskeletal: Chronic arthralgias and myalgias Neuro: No weakness, altered mental status, paresthesias Past History Travel History Traveled to [place] past 21 day No Medical History Neurological: NONE EENT: NONE Cardiovascular: hypertension, hyperlipidemia Respiratory: NONE Gastrointestinal: colitis Hepatic: NONE Renal: NONE Musculoskeletal: fibromyalgia, L KNEE REPLACEMENT Psychiatric: depression Endocrine: NONE Blood Disorders: NONE Cancer(s): NONE 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 Surgical History Surgical History: appendectomy, cholecystectomy, GASTRIC BYPASS LT KNEE REPAIR RT ANKLE SX CARPEL TUNNEL SX Psychosocial History ETOH Use: denies use Illicit Drug Use: denies illicit drug use Exam & Diagnostic Data Vital Signs and I&O Vital Signs Date Time Temp Pulse Resp B/P B/P Pulse O2 O2 Flow FiO2 Mean Ox Delivery Rate 03/29 1616 97.6 84 16 136/74 98 Room Air 03/29 1504 97.5 73 18 128/77 99 03/29 1249 Room Air 03/29 0937 97.5 88 18 105/74 96 Room Air Intake & Output 03/29 1600 03/29 0400 03/28 1600 03/28 0400 03/27 1600 03/27 0400 Intake Total 1000 Output Total Balance 1000 Intake, IV 1000 Patient 215 lb Weight Physical Exam: General: Well-developed, obese white female in no acute distress Skin: No rash or jaundice HEENT: Conjunctivae pink, sclerae anicteric, mucous membranes dry Neck: Without masses or thyromegaly, no supraclavicular or cervical adenopathy Chest: Clear to P&A Heart: Regular rate and rhythm without S3 or rub Abdomen: Soft and nontender without palpable masses or organomegaly Extremities: Without cyanosis or edema; surgical scar over left knee Neuro: No focal findings, no asterixis or myoclonus Assessment/Plan Assessment/Recommendations Assessment: 57-year-old woman with acute kidney injury likely due to prerenal factors related to a diarrheal illness while on an ARB and diuretic. This is supported by her urinalysis showing a very high specific gravity. However, cannot as yet rule out acute tubular necrosis. Obstructive uropathy essentially ruled out by the normal renal ultrasound. Hypokalemia is likely related to GI potassium losses. Finally, the normal serum bicarbonate level with high anion gap suggests a mixed metabolic acidosis (renal and GI) and metabolic alkalosis ( contraction). Recommendations: 1. Spot urine for fractional excretion of sodium 2. Check serum phosphorus, magnesium and CK levels 3. IV normal saline at 150s cc per hour 4. Supplement potassium 5. Monitor intake and output, chemistries 6. Evaluate for cause of diarrhea Thank you. Will follow up.
[2018-03-29 17:10] VITALS: BP 130/68
[2018-03-29 22:31] VITALS: BP 114/70
[2018-03-30 06:00] VITALS: BP 110/60
--- NOTE | 2018-03-30 07:21 | PN- Housestaff ---
Rosalba Poole 03/30/18 0721: Subjective Follow-up For: KAY Subjective: Patient reports she felt nauseated this morning and persistent watery brown stools but she would like to go home today. She denies vomiting, abdominal pain, urinary symptoms Review of Systems Constitutional: Reports: see HPI. Objective Last 24 Hrs of Vital Signs/I&O Vital Signs Date Time Temp Pulse Resp B/P B/P Pulse O2 O2 Flow FiO2 Mean Ox Delivery Rate 03/30 0600 98.2 75 18 110/60 94 Room Air 03/29 2231 98.2 69 18 114/70 97 Room Air 03/29 1710 98.2 89 18 130/68 97 Room Air 03/29 1616 97.6 84 16 136/74 98 Room Air 03/29 1504 97.5 73 18 128/77 99 03/29 1249 Room Air 03/29 0937 97.5 88 18 105/74 96 Room Air Intake & Output 03/30 1600 03/30 0800 03/30 0000 Intake Total 1320 2600 Output Total Balance 1320 2600 Intake, IV 1200 1600 Intake, Oral 120 1000 Patient 215 lb Weight Physical Exam General Appearance: Alert, Oriented X3, Cooperative, No Acute Distress Cardiovascular: Regular Rate, Normal S1, Normal S2 Lungs: Clear to Auscultation, Normal Air Movement Abdomen: Normal Bowel Sounds, Soft, No Tenderness Current Medications: Current Medications Sig/Carissa Start time Last Medication Dose Route Stop Time Status Admin Dicyclomine HCl 20 MG TID 03/29 2100 AC 03/29 PO 2042 Enoxaparin Sodium 40 MG DAILY 03/29 1551 DC SC Ferrous Sulfate 325 MG DAILY 03/30 0900 AC PO Heparin Sodium 5,000 UNIT Q8 03/29 1559 AC 03/30 (Porcine) SC 0524 Melatonin 5 MG AT BEDTIME PRN 03/29 2030 AC 03/29 PO 2042 Mesalamine 1,200 MG BID 03/29 2100 AC 03/29 PO 2042 Ondansetron HCl 4 MG ONCE ONE 03/30 0830 AC PO 03/30 0831 Oxycodone HCl 5 MG Q12P PRN 03/29 1745 AC PO Potassium Chloride 40 MEQ ONCE ONE 03/30 0015 DC 03/30 PO 03/30 0016 0013 Potassium Chloride 40 MEQ .STK-MED ONE 03/30 0000 DC PO 03/30 0001 Potassium Chloride 40 MEQ ONCE ONE 03/29 2330 DC PO 03/29 2331 Pravastatin Sodium 10 MG 1700 03/30 1700 AC PO Ramelteon 8 MG ONCE ONE 03/29 2215 DC 03/29 PO 03/29 2216 2226 Sertraline HCl 100 MG DAILY 03/30 0900 AC PO Sodium Chloride 1,000 ML Q6H 03/29 1730 AC 03/30 IV 0523 Sodium Chloride 1,000 ML BOLUS ONE 03/29 1315 DC 03/29 IV 03/29 1414 1334 Sodium Chloride 1,000 ML BOLUS ONE 03/29 1115 DC 03/29 IV 03/29 1214 1154 Last 24 Hrs of Lab/Tristen Results Last 24 Hrs of Labs/Mics: Laboratory Tests 03/30/18 0810: Sodium Pending, Potassium Pending, Chloride Pending, Carbon Dioxide Pending, Anion Gap Pending, BUN Pending, Creatinine Pending, BUN/Creatinine Ratio Pending , CBC w Diff Pending, WBC Pending, RBC Pending, Hgb Pending, Hct Pending, MCV Pending, MCH Pending, MCHC Pending, RDW Pending, Plt Count Pending, MPV Pending 03/29/18 1910: Ur Random Creatinine Cancelled, Ur Random Sodium Cancelled, Ur Random Potassium Cancelled, Fraction Sodium Excret Cancelled 03/29/18 1137: Urinalysis LIGHT H, Urine Color YEL, Urine Clarity HAZY H, Urine pH 5.5, Ur Specific Platter >= 1.030, Urine Protein 30 H, Urine Ketones TRACE H, Urine Nitrite NEG, Urine Bilirubin NEG@ICTO, Urine Urobilinogen 0.2, Ur Leukocyte Esterase TRACE H, Ur Microscopic SEDIMENT EXAMINED, Urine WBC 1-3 H, Ur Epithelial Cells MANY H, Urine Bacteria FEW H, Hyaline Casts 1-3 H, Urine Hemoglobin NEG, Urine Glucose NEG 03/29/18 1137: Anion Gap 15, Estimated GFR 14 L, BUN/Creatinine Ratio 12.1, Glucose 105 H, Calcium 9.4, Phosphorus 4.3, Magnesium 2.3, Total Bilirubin 0.6, AST 26, ALT 45, Alkaline Phosphatase 122, Creatine Kinase 45, Total Protein 6.8, Albumin 4.2, Globulin 2.6, Albumin/Globulin Ratio 1.6, CBC w Diff NO MAN DIFF REQ, RBC 4.40, MCV 86.9, MCH 29.3, MCHC 33.7, RDW 14.5, MPV 8.1, Gran % 75.6 H, Lymphocytes % 16.1 L, Monocytes % 5.9, Eosinophils % 2.1, Basophils % 0.3, Absolute Granulocytes 11.6 H, Absolute Lymphocytes 2.5, Absolute Monocytes 0.9 H, Absolute Eosinophils 0.3, Absolute Basophils 0.1, Ur Random Creatinine 511, Ur Random Sodium 7 L, Ur Random Potassium 17.3, Fraction Sodium Excret 0.0 Microbiology 03/29 2324 STOOL: Clostridium difficile Toxin A & B - CAN Cancelled: Cancelled via OE: Duplicate Order 03/29 2210 STOOL: Cryptosporidium Antigen - RECD 03/29 2210 STOOL: Giardia Antigen (TRISTEN) - RECD 03/29 2210 STOOL: Stool Culture - RECD 03/29 174 STOOL: Clostridium difficile Toxin A & B - CAN Cancelled: Cancelled via OE: Error Assessment/Plan Assessment: Ms. Levy is a 57-year-old female with a PMH of hypertension, hyperlipidemia, colitis, fibromyalgia, depression SIB [facility] for abnormal labs. Spoke with GI who confirms that they will see patient this afternoon but after further discussions with patient she reports she will be leaving no later than 1 pm and will rather set up an outpatient appt to follow up with Dr. Bill. Patient was advised to stay. Problem list: #KAY (Cr 3.4)- secondary to dehydration in the setting of antihypertensives versus due to gabapentin use #Leukocytosis - may be reactive Plan: Renal ultrasound r/o an obstructive uropathy FeNa 0 suggesting a prerenal etiology 2/2 fluid losses NS IVF @ 150 cc/hr Watch off antibiotics Vitals every shift Continue home meds: Dicyclomine, mesalamine, oxycodone, Ativan, sertraline We will hold losartan and gabapentin Avoid nephrotoxic agents Await Stool for ova and parasites C. difficile toxin negative We will obtain Fecal calprotectin Appreciate GI recommendations Appreciate Nephro recommendations Diet: Heart healthy DVT ppx: Heparin Code: Full Problem List: 1. 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 She wants to go home today. Her vital signs are stable. She still has diarrhea but says that this has been an issue for some time now. Vital Signs Date Time Temp Pulse Resp B/P B/P Pulse O2 O2 Flow FiO2 Mean Ox Delivery Rate 03/30 0600 98.2 75 18 110/60 94 Room Air 03/29 2231 98.2 69 18 114/70 97 Room Air 03/29 1710 98.2 89 18 130/68 97 Room Air 03/29 1616 97.6 84 16 136/74 98 Room Air 03/29 1504 97.5 73 18 128/77 99 03/29 1249 Room Air on exam; aox3, nad. heent; dry MM. cv; s1,s2, rrr resp; clear abd; soft, nt, bs+ ext; no edema Laboratory Tests 03/30 03/29 03/29 0810 1910 1719 Chemistry Sodium (137 - 145 mmol/L) 145 Potassium (3.5 - 5.1 mmol/L) 3.0 L Chloride (98 - 107 mmol/L) 113 H Carbon Dioxide (22 - 30 mmol/L) 22 Anion Gap (5 - 16) 9 BUN (7 - 17 mg/dL) 22 H Creatinine (0.5 - 1.0 mg/dL) 1.1 H Estimated GFR (>60 ml/min) 51 L BUN/Creatinine Ratio (7 - 25 %) 20.0 Hematology CBC w Diff NO MAN DIFF REQ WBC (4.8 - 10.8 /CUMM) 10.2 RBC (4.20 - 5.40 /CUMM) 3.70 L Hgb (12.0 - 16.0 G/DL) 11.1 L Hct (37 - 47 %) 32.5 L MCV (81.0 - 99.0 FL) 87.7 MCH (27.0 - 31.0 PG) 29.9 MCHC (33.0 - 37.0 G/DL) 34.1 RDW (11.5 - 14.5 %) 14.2 Plt Count (130 - 400 /CUMM) 240 MPV (7.4 - 10.4 FL) 7.9 Gran % (42.2 - 75.2 %) 79.5 H Lymphocytes % (20.5 - 51.1 %) 13.0 L Monocytes % (1.7 - 9.3 %) 5.3 Eosinophils % (0 - 5 %) 1.7 Basophils % (0.0 - 2.0 %) 0.5 Absolute Granulocytes (1.4 - 6.5 /CUMM) 8.1 H Absolute Lymphocytes (1.2 - 3.4 /CUMM) 1.3 Absolute Monocytes (0.10 - 0.60 /CUMM) 0.5 Absolute Eosinophils (0.0 - 0.7 /CUMM) 0.2 Absolute Basophils (0.0 - 0.2 /CUMM) 0 Other Body Source Stool Calprotectin Pending Urines Ur Random Creatinine Cancelled Ur Random Sodium Cancelled Ur Random Potassium Cancelled Fraction Sodium Excret Cancelled 03/29 03/29 1137 1137 Chemistry Sodium (137 - 145 mmol/L) 142 Potassium (3.5 - 5.1 mmol/L) 3.2 L Chloride (98 - 107 mmol/L) 104 Carbon Dioxide (22 - 30 mmol/L) 23 Anion Gap (5 - 16) 15 BUN (7 - 17 mg/dL) 41 H Creatinine (0.5 - 1.0 mg/dL) 3.4 H Estimated GFR (>60 ml/min) 14 L BUN/Creatinine Ratio (7 - 25 %) 12.1 Glucose (65 - 99 mg/dL) 105 H Calcium (8.4 - 10.2 mg/dL) 9.4 Phosphorus (2.5 - 4.5 mg/dL) 4.3 Magnesium (1.6 - 2.3 mg/dL) 2.3 Total Bilirubin (0.2 - 1.3 mg/dL) 0.6 AST (14 - 36 U/L) 26 ALT (9 - 52 U/L) 45 Alkaline Phosphatase (<127 U/L) 122 Creatine Kinase (30 - 135 U/L) 45 Total Protein (6.3 - 8.2 g/dL) 6.8 Albumin (3.5 - 5.0 g/dL) 4.2 Globulin (1.9 - 4.2 gm/dL) 2.6 Albumin/Globulin Ratio (1.1 - 2.2 %) 1.6 Hematology CBC w Diff NO MAN DIFF REQ WBC (4.8 - 10.8 /CUMM) 15.3 H RBC (4.20 - 5.40 /CUMM) 4.40 Hgb (12.0 - 16.0 G/DL) 12.9 Hct (37 - 47 %) 38.2 MCV (81.0 - 99.0 FL) 86.9 MCH (27.0 - 31.0 PG) 29.3 MCHC (33.0 - 37.0 G/DL) 33.7 RDW (11.5 - 14.5 %) 14.5 Plt Count (130 - 400 /CUMM) 357 MPV (7.4 - 10.4 FL) 8.1 Gran % (42.2 - 75.2 %) 75.6 H Lymphocytes % (20.5 - 51.1 %) 16.1 L Monocytes % (1.7 - 9.3 %) 5.9 Eosinophils % (0 - 5 %) 2.1 Basophils % (0.0 - 2.0 %) 0.3 Absolute Granulocytes (1.4 - 6.5 /CUMM) 11.6 H Absolute Lymphocytes (1.2 - 3.4 /CUMM) 2.5 Absolute Monocytes (0.10 - 0.60 /CUMM) 0.9 H Absolute Eosinophils (0.0 - 0.7 /CUMM) 0.3 Absolute Basophils (0.0 - 0.2 /CUMM) 0.1 Urines Urinalysis LIGHT H Urine Color (YEL,AMB,STR) YEL Urine Clarity (CLEAR) HAZY H Urine pH (5.0 - 8.0) 5.5 Ur Specific Platter (1.001 - 1.035) >= 1.030 Urine Protein (NEG,<30 MG/DL) 30 H Urine Ketones (NEG) TRACE H Urine Nitrite (NEG) NEG Urine Bilirubin (NEG) NEG@ICTO Urine Urobilinogen (0.1 - 1.0 EU/dl) 0.2 Ur Leukocyte Esterase (NEG) TRACE H Ur Microscopic SEDIMENT EXAMINED Urine WBC (0 - 2 /HPF) 1-3 H Ur Epithelial Cells (NONE,FEW) MANY H Urine Bacteria (NEG/NONE) FEW H Hyaline Casts (0/LPF) 1-3 H Urine Hemoglobin (NEG) NEG Ur Random Creatinine (mg/dL) 511 Ur Random Sodium (30 - 90 mmol/L) 7 L Ur Random Potassium (mmol/L) 17.3 Fraction Sodium Excret (<1% %) 0.0 Urine Glucose (N MG/DL) NEG A/P; 57-year-old female with past medical history significant for hypertension, hyperlipidemia, ulcerative colitis, fiber myalgia, depression admitted with acute renal failure likely secondary to prerenal etiology from dehydration. Renal ultrasound negative for any hydronephrosis or obstruction. Appreciate nephrology input. Creatinine is almost back to baseline. It is 1.1 today. Patient has received IV hydration. Patient still with diarrhea. We recommended getting an inpatient GI consult. We called Dr. Bill and were told that Dr. Pedro is covering. He also spoke with Dr. Pedro who said that she will see the patient later in the day. Spoke with the patient who said that she cannot wait passed midday today. She has to leave by a known today. Dr. Bill also recommended to collect the sample for fecal Calprotectin That would be done. Unfortunately because patient cannot stay and GI will not be able to see the patient before noon, patient will be discharged home and will follow-up as an outpatient with her GI doctor. She has been given Imodium as an outpatient by Dr. Bill which she can continue to take as needed. We also discussed with Dr. Romano about her losartan and were told that she can start taking her losartan as an outpatient. We would recommend that she should hold today and started tomorrow. We will replete her potassium. Patient will then be discharged home today.
[2018-03-30 08:58] LABS: ABSOLUTE BASOPHIL COUNT 0 /CUMM (0.0-0.2); ABSOLUTE EOSINOPHIL COUNT 0.2 /CUMM (0.0-0.7); ABSOLUTE GRANULOCYTE CT 8.1 /CUMM (1.4-6.5); ABSOLUTE LYMPH COUNT 1.3 /CUMM (1.2-3.4); ABSOLUTE MONOCYTE COUNT 0.5 /CUMM (0.10-0.60); BASOPHIL % 0.5 % (0.0-2.0); EOSINOPHIL % 1.7 % (0-5); GRANULOCYTE % 79.5 % (42.2-75.2); MEAN CORPUSCULAR HGB 29.9 PG (27.0-31.0); MEAN CORPUSCULAR HGB CONC 34.1 G/DL (33.0-37.0); MEAN CORPUSCULAR VOLUME 87.7 FL (81.0-99.0); MEAN PLATELET VOLUME 7.9 FL (7.4-10.4); PLATELET COUNT 240 /CUMM (130-400); RBC DISTRIBUTION WIDTH 14.2 % (11.5-14.5); WHITE BLOOD CELL COUNT 10.2 /CUMM (4.8-10.8)
[2018-03-30 09:23] LABS: HEMATOCRIT 32.5 % (37-47)
--- NOTE | 2018-03-30 09:48 | PN- Nephrology ---
Assessment/Plan Nephrology Assessment: 1. Acute kidney injury secondary to dehydration due to diarrhea, while on losartan -resolved with IV fluids 2. Hypokalemia and rising serum sodium although still within normal limits 3. Colitis with persistent diarrhea Suggestion: 1. Encourage p.o. fluids this morning and as an outpatient 2. KCl 40 mEq p.o. this morning and again just prior to discharge 3. Continue IV normal saline until noon today and she can then be discharged 4. She can resume her losartan as an outpatient but no diuretic 4. 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 Wants to go home. No shortness of breath or pain. No fever. Creatinine down to 1.1 this morning, sodium up slightly to 145. Potassium 3.0. Objective Vital Signs and I&Os Vital Signs Date Time Temp Pulse Resp B/P B/P Pulse O2 O2 Flow FiO2 Mean Ox Delivery Rate 03/30 0600 98.2 75 18 110/60 94 Room Air 03/29 2231 98.2 69 18 114/70 97 Room Air 03/29 1710 98.2 89 18 130/68 97 Room Air 03/29 1616 97.6 84 16 136/74 98 Room Air 03/29 1504 97.5 73 18 128/77 99 03/29 1249 Room Air Intake & Output 03/30 1600 03/30 0400 03/29 1600 03/29 0400 03/28 1600 03/28 0400 Intake Total 1320 2600 1000 Output Total Balance 1320 2600 1000 Intake, IV 1200 1600 1000 Intake, Oral 120 1000 Patient 215 lb 215 lb Weight Physical Exam: General: Well-developed white female in no acute distress Skin: No rash or jaundice HEENT: Conjunctivae pink, sclerae anicteric, mucous membranes moist Neck: Without masses or thyromegaly, no supraclavicular or cervical adenopathy Chest: Clear to P&A Heart: Regular rate and rhythm without S3 or rub Abdomen: Soft and nontender without palpable masses or organomegaly Extremities: Without cyanosis or edema Neuro: Awake and alert, no focal findings, no asterixis or myoclonus Results Pertinent Lab Results: Laboratory Tests 03/30 03/29 0810 1910 Chemistry Sodium (137 - 145 mmol/L) 145 Potassium (3.5 - 5.1 mmol/L) 3.0 L Chloride (98 - 107 mmol/L) 113 H Carbon Dioxide (22 - 30 mmol/L) 22 Anion Gap (5 - 16) 9 BUN (7 - 17 mg/dL) 22 H Creatinine (0.5 - 1.0 mg/dL) 1.1 H Estimated GFR (>60 ml/min) 51 L BUN/Creatinine Ratio (7 - 25 %) 20.0 Hematology CBC w Diff NO MAN DIFF REQ WBC (4.8 - 10.8 /CUMM) 10.2 RBC (4.20 - 5.40 /CUMM) 3.70 L Hgb (12.0 - 16.0 G/DL) 11.1 L Hct (37 - 47 %) 32.5 L MCV (81.0 - 99.0 FL) 87.7 MCH (27.0 - 31.0 PG) 29.9 MCHC (33.0 - 37.0 G/DL) 34.1 RDW (11.5 - 14.5 %) 14.2 Plt Count (130 - 400 /CUMM) 240 MPV (7.4 - 10.4 FL) 7.9 Gran % (42.2 - 75.2 %) 79.5 H Lymphocytes % (20.5 - 51.1 %) 13.0 L Monocytes % (1.7 - 9.3 %) 5.3 Eosinophils % (0 - 5 %) 1.7 Basophils % (0.0 - 2.0 %) 0.5 Absolute Granulocytes (1.4 - 6.5 /CUMM) 8.1 H Absolute Lymphocytes (1.2 - 3.4 /CUMM) 1.3 Absolute Monocytes (0.10 - 0.60 /CUMM) 0.5 Absolute Eosinophils (0.0 - 0.7 /CUMM) 0.2 Absolute Basophils (0.0 - 0.2 /CUMM) 0 Urines Ur Random Creatinine Cancelled Ur Random Sodium Cancelled Ur Random Potassium Cancelled Fraction Sodium Excret Cancelled 03/29 03/29 1137 1137 Chemistry Sodium (137 - 145 mmol/L) 142 Potassium (3.5 - 5.1 mmol/L) 3.2 L Chloride (98 - 107 mmol/L) 104 Carbon Dioxide (22 - 30 mmol/L) 23 Anion Gap (5 - 16) 15 BUN (7 - 17 mg/dL) 41 H Creatinine (0.5 - 1.0 mg/dL) 3.4 H Estimated GFR (>60 ml/min) 14 L BUN/Creatinine Ratio (7 - 25 %) 12.1 Glucose (65 - 99 mg/dL) 105 H Calcium (8.4 - 10.2 mg/dL) 9.4 Phosphorus (2.5 - 4.5 mg/dL) 4.3 Magnesium (1.6 - 2.3 mg/dL) 2.3 Total Bilirubin (0.2 - 1.3 mg/dL) 0.6 AST (14 - 36 U/L) 26 ALT (9 - 52 U/L) 45 Alkaline Phosphatase (<127 U/L) 122 Creatine Kinase (30 - 135 U/L) 45 Total Protein (6.3 - 8.2 g/dL) 6.8 Albumin (3.5 - 5.0 g/dL) 4.2 Globulin (1.9 - 4.2 gm/dL) 2.6 Albumin/Globulin Ratio (1.1 - 2.2 %) 1.6 Hematology CBC w Diff NO MAN DIFF REQ WBC (4.8 - 10.8 /CUMM) 15.3 H RBC (4.20 - 5.40 /CUMM) 4.40 Hgb (12.0 - 16.0 G/DL) 12.9 Hct (37 - 47 %) 38.2 MCV (81.0 - 99.0 FL) 86.9 MCH (27.0 - 31.0 PG) 29.3 MCHC (33.0 - 37.0 G/DL) 33.7 RDW (11.5 - 14.5 %) 14.5 Plt Count (130 - 400 /CUMM) 357 MPV (7.4 - 10.4 FL) 8.1 Gran % (42.2 - 75.2 %) 75.6 H Lymphocytes % (20.5 - 51.1 %) 16.1 L Monocytes % (1.7 - 9.3 %) 5.9 Eosinophils % (0 - 5 %) 2.1 Basophils % (0.0 - 2.0 %) 0.3 Absolute Granulocytes (1.4 - 6.5 /CUMM) 11.6 H Absolute Lymphocytes (1.2 - 3.4 /CUMM) 2.5 Absolute Monocytes (0.10 - 0.60 /CUMM) 0.9 H Absolute Eosinophils (0.0 - 0.7 /CUMM) 0.3 Absolute Basophils (0.0 - 0.2 /CUMM) 0.1 Urines Urinalysis LIGHT H Urine Color (YEL,AMB,STR) YEL Urine Clarity (CLEAR) HAZY H Urine pH (5.0 - 8.0) 5.5 Ur Specific [place] (1.001 - 1.035) >= 1.030 Urine Protein (NEG,<30 MG/DL) 30 H Urine Ketones (NEG) TRACE H Urine Nitrite (NEG) NEG Urine Bilirubin (NEG) NEG@ICTO Urine Urobilinogen (0.1 - 1.0 EU/dl) 0.2 Ur Leukocyte Esterase (NEG) TRACE H Ur Microscopic SEDIMENT EXAMINED Urine WBC (0 - 2 /HPF) 1-3 H Ur Epithelial Cells (NONE,FEW) MANY H Urine Bacteria (NEG/NONE) FEW H Hyaline Casts (0/LPF) 1-3 H Urine Hemoglobin (NEG) NEG Ur Random Creatinine (mg/dL) 511 Ur Random Sodium (30 - 90 mmol/L) 7 L Ur Random Potassium (mmol/L) 17.3 Fraction Sodium Excret (<1% %) 0.0 Urine Glucose (N MG/DL) NEG
--- NOTE | 2018-03-30 10:42 | Patient Discharge Instructions ---
Discharge Instructions General Discharge Information You were seen/treated for: Acute kidney injury Dehydration Diarrhea You had these procedures: none Special Instructions: Follow up with your PCP-Dr. Ayers within 1-2 weeks of discharge Follow up with your sql server consultant-Dr. Bill within 1 week of discharge DO NOT TAKE YOUR BLOOD PRESSURE MEDICATION LOSARTAN TODAY. RESUME TOMORROW. We encourage you drink a lot of fluids Diet Continue normal diet: Yes Activity Full Activity/No Limits: Yes Acute Coronary Syndrome Inclusion Criteria At DC or during hospital stay patient has or had the following: ACS DIAGNOSIS No Discharge Core Measures Meds if any: Prescribed or Continued at Discharge Meds if any: NOT Prescribed or Continued at Discharge Congestive Heart Failure Inclusion Criteria At DC or during hospital stay patient has or had the following: CHF DIAGNOSIS No Discharge Core Measures Meds if any: Prescribed or Continued at Discharge Meds if any: NOT Prescribed or Continued at Discharge Cerebrovascular accident Inclusion Criteria At DC or during hospital stay patient has or had the following: CVA/TIA Diagnosis No Discharge Core Measures Meds if any: Prescribed or Continued at Discharge Meds if any: NOT Prescribed or Continued at Discharge Venous thromboembolism Inclusion Criteria VTE Diagnosis No VTE Type NONE VTE Confirmed by (Test) NONE Discharge Core Measures - Per Current guidelines, there needs to be overlap - treatment for the first 5 days of Warfarin therapy. - If discharged on Warfarin prior to 5 days of - overlap therapy, the patient will need to be - assessed for post discharge needs including - *Post discharge parental anticoagulation - *Warfarin and/or parental anticoagulation education - *Follow up date to check INR post discharge At least 5 days overlap therapy as Inpatient No Meds if any: Prescribed or Continued at Discharge Note: Overlap Therapy is Warfarin and Anticoagulant Meds if any: NOT Prescribed or Continued at Discharge
--- NOTE | 2018-03-30 10:46 | Discharge Summary ---
Visit Information Visit Dates Admission Date: 03/29/18 Discharge Date: 03/30/18 Hospital Course Course Attending Physician: Myrtle Zamora MD Primary Care Physician: Zakiya Ayers APRN Hospital Course: Ms. Levy is a 57-year-old female with a PMH of hypertension, hyperlipidemia, colitis, fibromyalgia, depression SIB [facility] for abnormal labs. She was admitted to the general medical floor for further evaluation and management #KAY On admission her creatinine was 3.4. We consulted Nephrology and it was suspected to be secondary to dehydration due to diarrhea in the setting of antihypertensives (ARB). Her creatinine drastically improved with IV fluids. Renal ultrasound ruled out an obstructive uropathy #Diarrhea with history of Colitis Gastroenterology was consulted. Watch off antibiotics. Her C.difficile was negative. We sent out for a Fecal calprotectin. She was prescribed a Cholestyramine and advised to follow up with Gastroenterology upon discharge #Chronic medical conditions Her home meds were resumed except Losartan. Her Losartan was resumed upon discharge. Allergies: Coded Allergies: NSAIDS (Non-Steroidal Anti-Inflamma (CANT HAVE DUE TO HX OF GASTRIC BYPASS 07/14) Pertinent Lab Results: 03/29/18-1230 EXAM TYPE: US - US-RENAL/KIDNEY IMPRESSION: Normal sonographic appearance of the kidneys. Disposition Summary Disposition Principal Diagnosis: Acute kidney injury Diarrhea Additional Diagnosis: as above Discharge Disposition: home or self care Discharge Instructions General Discharge Information Code Status: Full Code Patient's Diet: Heart healthy Patient's Activity: Full Follow-Up Instructions/Appts: Follow up with your PCP-Dr. Ayers within 1-2 weeks of discharge Follow up with your materials engineering technician-Dr. Bill within 1 week of discharge DO NOT TAKE YOUR BLOOD PRESSURE MEDICATION LOSARTAN TODAY. RESUME TOMORROW. We encourage you drink a lot of fluids Medications at Discharge Discharge Medications: Continue taking these medications: Sertraline HCl (Zoloft) 100 MG TABLET 1 Tablet ORAL DAILY Comments: Last Taken: 03/30/18 Time: 1000 AM Losartan Potassium (Losartan Potassium) 100 MG TABLET 1 Tablet ORAL DAILY Instructions: Resume this medication tomorrow Comments: NOT TAKEN IN HOSPITAL Pravastatin Sodium (Pravastatin Sodium) 10 MG TABLET 1 Tablet ORAL DAILY Comments: NOT TAKEN Gabapentin (Neurontin) 400 MG CAPSULE 1 Capsule ORAL THREE TIMES DAILY Qty = 90 Comments: NOT TAKEN IN HOSPITAL Mesalamine (Lialda) 1.2 GRAM TABLET.DR 1 Tablet ORAL TWICE DAILY Comments: Last Taken: 03/30/18 Time: 1000 AM Dicyclomine HCl (Dicyclomine HCl) 20 MG TABLET 1 Tablet ORAL THREE TIMES DAILY Comments: Last Taken: 03/30/18 Time: 1000 Pantoprazole Sodium (Protonix) 40 MG TABLET.DR 1 Tablet ORAL TWICE DAILY Comments: NOT TAKEN Oxycodone HCl (Oxycodone HCl) 5 MG TABLET 1 Tablet ORAL 2 x Daily as needed as needed for PAIN Qty = 60 Comments: NOT TAKEN Ferrous Sulfate (Ferrous Sulfate) 325 MG (65 MG IRON) TABLET.DR 1 Tablet ORAL DAILY Qty = 90 Comments: Last Taken: 03/30/18 Time: 1000 AM Start taking the following new medications: Loperamide HCl (Loperamide) 2 MG TABLET 1 Tablet ORAL Every 4 hours Qty = 15 No Refills Instructions: . Cholestyramine (With Sugar) (Questran Packet) 4 GRAM POWD.PACK 1 Packet ORAL THREE TIMES DAILY Qty = 30 No Refills Instructions: TAKE 2 HOURS BEFORE MEDS OR 4 HOURS AFTER MEDS Copies To: Ceci TAYLOR,[place]na; Zakiya Ayers APRN; Rosalina TAYLOR,Jacinto Ramirez Qty = 30 No Refills Instructions: TAKE 2 HOURS BEFORE MEDS OR 4 HOURS AFTER MEDS Copies To: Zakiya Ayers APRN; Rosalina TAYLOR,Jacinto Ramirez
[2018-03-30] MEDS ORDERED: LOPERAMIDE2 M1 PO ×2 (11:46→15:21)
[2018-03-30 14:52] VITALS: BP 110/70
[2018-03-30] MEDS ORDERED: QUESTRAN PACKET4 GM PO (15:51)
--- NOTE | 2018-03-30 17:09 | Cons- Gastroenterology ---
General Information and HPI Consulting Request Date of Consult: 03/30/18 Requested By: Myrtle Zamora MD Reason for Consult: 1. Diarrhea 2. Ulcerative colitis 3. History of C. difficile colitis Source of Information: patient, electronic medical records Exam Limitations: no limitations History of Present Illness: Ms. Levy is a 57-year-old female with a past medical history of ulcerative colitis currently in remission. She had a colonoscopy in January of 2018 that showed endoscopic and pathologic remission with only rare crypt distortion. She is currently maintained on Hardeep the 2.4 g per day. She was diagnosed with C. difficile colitis in December of this year and was treated with vancomycin 125 mg by mouth 4 times a day. She continued to have diarrhea and repeat stool for C. difficile toxin was negative but was treated with a long taper given concern that the EIA represented a false negative. She did well but return to see Dr. Bill in the office with recurrent watery diarrhea. She had no blood in her stools. He had recommended that she take Lomotil 2 tablets 4 times daily and had also prescribed cholestyramine and 1 packet 3 times a day which she did not take. She reports that she had no significant relief or at least inadequate relief with the Lomotil. She came to the ED with decreased level of consciousness related to dehydration in the setting of diarrhea. She was found to have acute kidney injury in the setting o dehydration. Her BUN/Cr was 41/3.4 on admission and after hydration decreased to 22/1.1. She denies melena or bright red blood per rectum. She reports that she had no nausea, vomiting or abdominal pain and that her diarrheal stools were not like the diarrheal stools she had had with a lare of Ulcerative colitis. She had not started any new medications nor had an increase in the dose of any of her currrent medications. She is feeling well and wants to go home. Allergies/Medications Allergies: Coded Allergies: NSAIDS (Non-Steroidal Anti-Inflamma (CANT HAVE DUE TO HX OF GASTRIC BYPASS 07/14) Home Med List: Cholestyramine (With Sugar) (Questran Packet) 4 GRAM POWD.PACK 1 Packet PO TID DIARRHEA TAKE 2 HOURS BEFORE MEDS OR 4 HOURS AFTER MEDS Dicyclomine HCl 20 MG TABLET 1 TAB PO TID GI (Reported) Ferrous Sulfate 325 MG (65 MG IRON) TABLET. 1 TAB PO DAILY SUPPLEMENT ( Reported) Gabapentin (Neurontin) 400 MG CAPSULE 1 CAP PO TID Peripheral neuropathy ( Reported) Loperamide HCl (Loperamide) 2 MG TABLET 1 TAB PO Q4 Antidiarrhea . Losartan Potassium 100 MG TABLET 1 TAB PO DAILY HEART (Reported) Resume this medication tomorrow Mesalamine (Lialda) 1.2 GRAM TABLET.DR 1 TAB PO BID GI (Reported) Oxycodone HCl 5 MG TABLET 1 TAB PO BIDP PRN PAIN (Reported) Pantoprazole Sodium (Protonix) 40 MG TABLET.DR 1 TAB PO BID GI (Reported) Pravastatin Sodium 10 MG TABLET 1 TAB PO DAILY CHOLESTEROL (Reported) Sertraline HCl (Zoloft) 100 MG TABLET 1 TAB PO DAILY MENTAL HEALTH (Reported) Current Medications: Current Medications Sig/Carissa Start time Last Medication Dose Route Stop Time Status Admin Dicyclomine HCl 20 MG TID 03/29 2100 DCD 03/30 PO 1346 Ferrous Sulfate 325 MG DAILY 03/30 0900 DCD 03/30 PO 0951 Heparin Sodium 5,000 UNIT Q8 03/29 1559 DCD 03/30 (Porcine) SC 1347 Melatonin 5 MG AT BEDTIME PRN 03/29 2030 DCD 03/29 PO 2043 Mesalamine 1,200 MG BID 03/29 2100 DCD 03/30 PO 0951 Ondansetron HCl 4 MG ONCE ONE 03/30 0830 DC 03/30 PO 03/30 0831 0845 Oxycodone HCl 5 MG Q12P PRN 03/29 1745 DCD PO Patient Medication 1 ED ONE ONE 03/30 0900 DC Teaching ED 03/30 0901 Potassium Chloride 40 MEQ ONCE ONE 03/30 1045 DC 03/30 PO 03/30 1046 1205 Potassium Chloride 10 MEQ ONCE ONE 03/30 1000 DC 03/30 IV 03/30 1001 1205 Potassium Chloride 40 MEQ ONCE ONE 03/30 0015 DC 03/30 PO 03/30 0016 0013 Potassium Chloride 40 MEQ .STK-MED ONE 03/30 0000 DC PO 03/30 0001 Potassium Chloride 40 MEQ ONCE ONE 03/29 2330 DC PO 03/29 2331 Pravastatin Sodium 10 MG 1700 03/30 1700 DCD PO Ramelteon 8 MG ONCE ONE 03/29 2215 DC 03/29 PO 03/29 2216 2226 Sertraline HCl 100 MG DAILY 03/30 0900 DCD 03/30 PO 0951 Sodium Chloride 1,000 ML Q6H 03/29 1730 DCD 03/30 IV 1406 Past History Travel History Traveled to [place] past 21 day No Medical History Blood Transfusion Hx: No Neurological: NONE EENT: NONE Cardiovascular: hypertension, hyperlipidemia Respiratory: NONE Gastrointestinal: colitis Hepatic: NONE Renal: NONE Musculoskeletal: fibromyalgia, L KNEE REPLACEMENT Psychiatric: depression Endocrine: NONE Blood Disorders: NONE Cancer(s): NONE 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 Home Services at Home: None Smoking Status: Former Smoker ETOH Use: denies use Illicit Drug Use: denies illicit drug use Review of Systems Review of Systems Constitutional: Reports: malaise, weakness. EENTM: Reports: no symptoms. Cardiovascular: Reports: no symptoms. Respiratory: Reports: no symptoms, see HPI, cough, hemoptysis, orthopnea, short of breath, sputum production, stridor, wheezing. GI: Reports: diarrhea. Denies: melena, nausea, bloody stool. Genitourinary: Reports: no symptoms. Musculoskeletal: Reports: no symptoms. Skin: Reports: no symptoms. Neurological/Psychological: Reports: see HPI, weakness. Hematologic/Endocrine: Reports: no symptoms. Exam & Diagnostic Data Vital Signs and I&O Vital Signs Date Time Temp Pulse Resp B/P B/P Pulse O2 O2 Flow FiO2 Mean Ox Delivery Rate 03/30 1452 98.0 75 18 110/70 96 03/30 0600 98.2 75 18 110/60 94 Room Air 03/29 2231 98.2 69 18 114/70 97 Room Air 03/29 1710 98.2 89 18 130/68 97 Room Air Intake & Output 03/30 1600 03/30 0400 03/29 1600 03/29 0400 03/28 1600 03/28 0400 Intake Total 1820 2600 1000 Output Total Balance 1820 2600 1000 Intake, IV 1200 1600 1000 Intake, Oral 620 1000 Number 3 Bowel Movements Patient 215 lb 215 lb Weight Physical Exam General Appearance: no apparent distress, alert, comfortable Head: atraumatic, normal appearance Eyes: Bilateral: normal appearance. Ears, Nose, Throat: normal pharynx, hearing grossly normal Neck: supple, full range of motion Respiratory: normal breath sounds, no respiratory distress, lungs clear Cardiovascular: regular rate/rhythm, normal S1 and S2, no rub, murmur, or gallop. Gastrointestinal: normal bowel sounds, soft, non-tender, no organomegaly Neurologic/Psych: awake, alert, oriented x 3 Skin: normal color, warm/dry Results Pertinent Lab Results: Laboratory Tests 03/30 03/29 03/29 0810 1910 1719 Chemistry Sodium (137 - 145 mmol/L) 145 Potassium (3.5 - 5.1 mmol/L) 3.0 L Chloride (98 - 107 mmol/L) 113 H Carbon Dioxide (22 - 30 mmol/L) 22 Anion Gap (5 - 16) 9 BUN (7 - 17 mg/dL) 22 H Creatinine (0.5 - 1.0 mg/dL) 1.1 H Estimated GFR (>60 ml/min) 51 L BUN/Creatinine Ratio (7 - 25 %) 20.0 Hematology CBC w Diff NO MAN DIFF REQ WBC (4.8 - 10.8 /CUMM) 10.2 RBC (4.20 - 5.40 /CUMM) 3.70 L Hgb (12.0 - 16.0 G/DL) 11.1 L Hct (37 - 47 %) 32.5 L MCV (81.0 - 99.0 FL) 87.7 MCH (27.0 - 31.0 PG) 29.9 MCHC (33.0 - 37.0 G/DL) 34.1 RDW (11.5 - 14.5 %) 14.2 Plt Count (130 - 400 /CUMM) 240 MPV (7.4 - 10.4 FL) 7.9 Gran % (42.2 - 75.2 %) 79.5 H Lymphocytes % (20.5 - 51.1 %) 13.0 L Monocytes % (1.7 - 9.3 %) 5.3 Eosinophils % (0 - 5 %) 1.7 Basophils % (0.0 - 2.0 %) 0.5 Absolute Granulocytes (1.4 - 6.5 /CUMM) 8.1 H Absolute Lymphocytes (1.2 - 3.4 /CUMM) 1.3 Absolute Monocytes (0.10 - 0.60 /CUMM) 0.5 Absolute Eosinophils (0.0 - 0.7 /CUMM) 0.2 Absolute Basophils (0.0 - 0.2 /CUMM) 0 Other Body Source Stool Calprotectin Pending Urines Ur Random Creatinine Cancelled Ur Random Sodium Cancelled Ur Random Potassium Cancelled Fraction Sodium Excret Cancelled 03/29 03/29 1137 1137 Chemistry Sodium (137 - 145 mmol/L) 142 Potassium (3.5 - 5.1 mmol/L) 3.2 L Chloride (98 - 107 mmol/L) 104 Carbon Dioxide (22 - 30 mmol/L) 23 Anion Gap (5 - 16) 15 BUN (7 - 17 mg/dL) 41 H Creatinine (0.5 - 1.0 mg/dL) 3.4 H Estimated GFR (>60 ml/min) 14 L BUN/Creatinine Ratio (7 - 25 %) 12.1 Glucose (65 - 99 mg/dL) 105 H Calcium (8.4 - 10.2 mg/dL) 9.4 Phosphorus (2.5 - 4.5 mg/dL) 4.3 Magnesium (1.6 - 2.3 mg/dL) 2.3 Total Bilirubin (0.2 - 1.3 mg/dL) 0.6 AST (14 - 36 U/L) 26 ALT (9 - 52 U/L) 45 Alkaline Phosphatase (<127 U/L) 122 Creatine Kinase (30 - 135 U/L) 45 Total Protein (6.3 - 8.2 g/dL) 6.8 Albumin (3.5 - 5.0 g/dL) 4.2 Globulin (1.9 - 4.2 gm/dL) 2.6 Albumin/Globulin Ratio (1.1 - 2.2 %) 1.6 Hematology CBC w Diff NO MAN DIFF REQ WBC (4.8 - 10.8 /CUMM) 15.3 H RBC (4.20 - 5.40 /CUMM) 4.40 Hgb (12.0 - 16.0 G/DL) 12.9 Hct (37 - 47 %) 38.2 MCV (81.0 - 99.0 FL) 86.9 MCH (27.0 - 31.0 PG) 29.3 MCHC (33.0 - 37.0 G/DL) 33.7 RDW (11.5 - 14.5 %) 14.5 Plt Count (130 - 400 /CUMM) 357 MPV (7.4 - 10.4 FL) 8.1 Gran % (42.2 - 75.2 %) 75.6 H Lymphocytes % (20.5 - 51.1 %) 16.1 L Monocytes % (1.7 - 9.3 %) 5.9 Eosinophils % (0 - 5 %) 2.1 Basophils % (0.0 - 2.0 %) 0.3 Absolute Granulocytes (1.4 - 6.5 /CUMM) 11.6 H Absolute Lymphocytes (1.2 - 3.4 /CUMM) 2.5 Absolute Monocytes (0.10 - 0.60 /CUMM) 0.9 H Absolute Eosinophils (0.0 - 0.7 /CUMM) 0.3 Absolute Basophils (0.0 - 0.2 /CUMM) 0.1 Urines Urinalysis LIGHT H Urine Color (YEL,AMB,STR) YEL Urine Clarity (CLEAR) HAZY H Urine pH (5.0 - 8.0) 5.5 Ur Specific [place] (1.001 - 1.035) >= 1.030 Urine Protein (NEG,<30 MG/DL) 30 H Urine Ketones (NEG) TRACE H Urine Nitrite (NEG) NEG Urine Bilirubin (NEG) NEG@ICTO Urine Urobilinogen (0.1 - 1.0 EU/dl) 0.2 Ur Leukocyte Esterase (NEG) TRACE H Ur Microscopic SEDIMENT EXAMINED Urine WBC (0 - 2 /HPF) 1-3 H Ur Epithelial Cells (NONE,FEW) MANY H Urine Bacteria (NEG/NONE) FEW H Hyaline Casts (0/LPF) 1-3 H Urine Hemoglobin (NEG) NEG Ur Random Creatinine (mg/dL) 511 Ur Random Sodium (30 - 90 mmol/L) 7 L Ur Random Potassium (mmol/L) 17.3 Fraction Sodium Excret (<1% %) 0.0 Urine Glucose (N MG/DL) NEG Assessment/Plan Assessment/Recommendations: ASSESSMENT: 1. Diarrhea -- patient has diarrhea that appears to be acute and not related to prior C. difficile or to ulcerative colitis. Patient may have had acute viral illness patient may also have had small intestinal bacterial overgrowth related to prior gastric bypass. However she is currently feeling well and eager to go home. She has no fever or abdominal pain nausea or vomiting. 2. Ulcerative colitis in remission 3. History of C. difficile diarrhea treated RECOMMENDATIONS: 1. Patient stable for discharge 2. Discussed with patient and she will take cholestyramine 1 packet 3 times daily to be taken either 2 hours before other medicines or 4 hours after other medicines discussed with aid her house staff who will Y prescription patient will call if she has any further problems or cholestyramine does not adequately control heard diarrhea. She will also continue to use Lomotil. 3. Patient will follow up with Dr. Bill in the office next week Consult Acknowledgment - Thank you for your consult request.
== END 2018-03-30 15:42 | DRG 469 ==
LOC: ERH 09:22 → 2NA 13:45 → ERHI 13:45 → ENRESERV 14:23 → ENTRNSPT 16:14 → 2NA 16:36 → CMPTRNSPT 16:46 → 2NA 03-30 15:42
PROVIDERS: Emergency Medicine; Internal Medicine Adolescent Medicine
DX: N17.9 Acute kidney failure, unspecified (principal); M79.7 Fibromyalgia; E78.5 Hyperlipidemia, unspecified; F32.9 Major depressive disorder, single episode, unspecified; E86.0 Dehydration; D72.829 Elevated white blood cell count, unspecified; A08.8 Other specified intestinal infections; T50.2X5A Adverse effect of carbonic-anhydrase inhibitors, benzothiadiazides and other diuretics, initial encounter; T44.5X5A Adverse effect of predominantly beta-adrenoreceptor agonists, initial encounter; E87.4 Mixed disorder of acid-base balance; E87.6 Hypokalemia; K52.9 Noninfective gastroenteritis and colitis, unspecified
CPT/HCPCS: 2NASP; 84133; 84300; 36415; 76775; 81001; 82436; 82570; 87015; 87045; 87328; 87329; 87899; 87899-59; 93005; 93010; 96360; 96361; J1644; J3101

== ENCOUNTER 2018-07-11 10:34 | Emergency (ER) | payer OTHER ==
[~2018-07-11 10:34] MED LIST changes: +COZAAR25 M1 PO; +LOPERAMIDE2 M1 PO; -LOSARTAN POTAS100 M1 PO; +QUESTRAN PACKET4 GM PO
--- NOTE | 2018-07-11 11:50 | ED GENERAL ADULT ---
History of Present Illness General Chief Complaint: Headache Stated Complaint: HOUGH Source: patient Exam Limitations: no limitations Vital Signs & Intake/Output Vital Signs & Intake/Output Vital Signs Date Time Temp Pulse Resp B/P B/P Pulse O2 O2 Flow FiO2 Mean Ox Delivery Rate 07/11 1037 97.1 82 16 161/96 96 Room Air Allergies Coded Allergies: NSAIDS (Non-Steroidal Anti-Inflamma (CANT HAVE DUE TO HX OF GASTRIC BYPASS 07/14) Reconcile Medications Dicyclomine HCl 20 MG TABLET 1 TAB PO TID GI (Reported) Ferrous Sulfate 325 MG (65 MG IRON) TABLET.DR 1 TAB PO DAILY SUPPLEMENT ( Reported) Losartan Potassium (Cozaar) 25 MG TABLET 1 TAB PO DAILY HEART (Reported) Mesalamine (Lialda) 1.2 GRAM TABLET.DR 1 TAB PO BID GI (Reported) Oxycodone HCl 5 MG TABLET 1 TAB PO BIDP PRN PAIN (Reported) Pantoprazole Sodium (Protonix) 40 MG TABLET.DR 1 TAB PO BID GI (Reported) Pravastatin Sodium 10 MG TABLET 1 TAB PO DAILY CHOLESTEROL (Reported) Sertraline HCl (Zoloft) 100 MG TABLET 1 TAB PO DAILY MENTAL HEALTH (Reported) Triage Note: PT TO ED C/O RT SIDED HEAD PAIN. DENIES A HOUGH, STATES THAT AREA HAS BEEN ITCHY, AND THINKS SHE FEELS A LUMP THERE. DENIES ANY INJURY. Triage Nurses Notes Reviewed? yes HPI: 58-year-old female presents with pain to the right side of the scalp over the past couple weeks. She reports she has a history of eczema. She reports itching. She reports now there is a lump on the side. She denies any bleeding, purulent discharge, fever, chills. The patient reports she is tried some unknown shampoo given in urgent care. Patient is concerned because she has a history of ulcerative colitis so has been warned against antibiotics. Past History Travel History Traveled to [place] past 21 day No Medical History Any Pertinent Medical History? 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 Yes Review of Systems Review of Systems Constitutional: Denies: chills, diaphoresis, fever. EENTM: Denies: blurred vision, double vision, visual changes. Respiratory: Denies: cough, hemoptysis, orthopnea. Cardiovascular: Denies: chest pain, edema, orthopena. GI: Denies: abdominal pain, bloating, constipation. Genitourinary: Denies: discharge, dysuria, frequency. Skin: Reports: change in skin color, dryness, lumps. Neurological/Psychological: Denies: ataxia, cognitive dysfunction. Hematologic/Endocrine: Denies: bruising, bleeding. Physical Exam Physical Exam General Appearance: well developed/nourished, no apparent distress, alert, awake Head: atraumatic, normal appearance, except below Eyes: Bilateral: PERRL, EOMI. Ears, Nose, Throat: normal pharynx, normal ENT inspection Neck: normal inspection, supple Respiratory: normal breath sounds, chest non-tender, no respiratory distress Neurologic/Psych: no motor/sensory deficits, awake, alert, oriented x 3 Lymphatic: no LAP Core Measures ACS in differential dx? No CVA/TIA Diagnosis: No Sepsis Present: No Sepsis Focused Exam Completed? No Progress Differential Diagnoses . Plan of Care: The patient has slight swelling with erythema with some crusty discharge in the scalp consistent with impetigo. There is no fluctuant swelling to suggest an abscess. There is definite erythema to the site. I called and spoke with the patient's GI doctor, . I explained my conundrum to him. He says the patient has had C. difficile in the past so he recommends topical antibiotics for impetigo. This is reasonable since this is a very limited area of impetigo. I spoke to the patient in detail about this. Discussed pros and cons. The patient verbalizes understanding. She will come back in 4-5 days if she is not better then we can try oral antibiotics. In the meantime if the patient gets worse she will come back. The patient does not know the name of the shampoo use but reports that it was not antibiotic. Plan: Mupirocin topical, return in 4-5 days if not better, return sooner if worse. Systemic antibiotics if failure of topical treatment. Initial ED EKG: none Comments: I called and spoke with the pharmacist and confirmed that the patient can use mupirocin in the hairy area like her scalp. No contraindications. Departure Departure Time of Disposition: 1217 Disposition: HOME OR SELF CARE Condition: Stable Clinical Impression Primary Impression: Impetigo Referrals: Zakiya Ayers APRN (PCP/Family) Additional Instructions: Use the antibiotic for 5 days, if you are not better return to the emergency room. Return sooner if you have fever, worsening symptoms or worsening pain or swelling. If the local antibiotics do not work he might have to do systemic antibiotics. Departure Forms: Customer Survey General Discharge Information Critical Care Note Critical Care Note Critical Care Time: non-applicable
[2018-07-11] MEDS ORDERED: MUPIROCIN22 GM TOP (12:22)
[2018-07-11 13:22] VITALS: BP 148/96
== END 2018-07-11 13:35 ==
LOC: ERH 10:34
DX: L01.00 Impetigo, unspecified (principal); I10 Essential (primary) hypertension